=== PATIENT | female | born 2000 | race Caucasian/White ===

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

== ENCOUNTER 2021-01-04 16:38 | Emergency (ER) | payer OTHER, SELFPAY ==
[2021-01-04 16:48] VITALS: BP 120/76; PULSE 127; RESP 21; TEMP 37.1; O2SAT 97; BMI 31.1
--- NOTE | 2021-01-04 16:59 | HMH.EDUTC ---
[facility] [place] Disposition Clinical Impression: Nausea vomiting and diarrhea Disposition: Home, Self-Care Condition on Discharge: Good Instructions: Diarrhea, Nausea and Vomiting-Adult, Ondansetron Additional Instructions: Drink extra fluids with and between meals. If you have difficulty drinking, try very small amounts of water or suck on ice chips. ? Avoid fruit juices, as these do not replace minerals and can actually increase diarrhea. ? Children and adults can use sports drinks to replenish electrolytes. Younger children and infants should use products formulated for children, like oral rehydration solutions. ? Eat food in small amounts and let your stomach recover. ? Get lots of rest. You may feel tired or weak. ? No greasy or fried foods for the next 24-48 hours BRAT diet Bananas Rice Apples and [place] ? Make sure to drink plenty of liquids ? Return if needed ? Straight to ER if any life threatening symptoms ? Zofran as prescribed ? You was given an outpatient order for diarrhea panel, please collect specimen and bring back to outpatient lab then call back to the [facility] or follow up with family doctor for results ? Follow up with family doctor in the next 48-72 hours if no improvement or any worsening of symptoms You were tested for today for COVID19 your test result should be back in the next 24-48 hours, you may call to the [facility] to see if your test results are back in the next 48 hours [phone] [facility] hours are 9am-9pm You was given a handout with instructions for Self Quarantine and Self isolation for while you wait on test results and what to do if they are positive If you are positive the Health Dept will be contacting you also Prescriptions: Ondansetron [Zofran 4mg ODT] 4 mg PO Q6HP PRN #20 tab PRN Reason: Nausea Transmission Status: Received by [id number] Referrals: Provider,Referral, [Primary Care Provider] - As needed Time of Disposition: 18:38 Medical Decision Making - Jaswant Inquiry Pt receiving controlled substance: No Jaswant was queried for this patient: No Vital Signs: 01/04/21 16:48 01/04/21 18:45 Temperature 98.8 F 98.5 F Temperature Source Oral Pulse Rate 107 H Pulse Rate [Right] 127 H Respiratory Rate 21 18 Blood Pressure 111/74 Blood Pressure [Right Arm] 120/76 Blood Pressure Mean [Right Arm] 90 02 Sat by Pulse Oximetry 97 - Lab Data Lab Results 01/04/21 17:03: Chlamy pneumoniae PCR Not detected, Adenovirus (PCR) Not detected, B. pertussis DNA (PCR) Not detected, Coronavirus OC43 (PCR) Not detected, Coronavirus HKU1 (PCR) Not detected, Coronavirus 229E (PCR) Not detected, SARS-CoV-2 (PCR) Not detected, Coronavirus NL63 (PCR) Not detected, Human Metapneumovir PCR Not detected, Influenza A (H1) PCR Not detected, Influ A (H1N1/09) PCR Not detected, Influenza A (H3) PCR Not detected, Influenza Type A (PCR) Not detected, Influenza Type B (PCR) Not detected, M. pneumoniae (PCR) Not detected, Parainfluenza 1 (PCR) Not detected, Parainfluenza 2 (PCR) Not detected, Parainfluenza 3 (PCR) Not detected, Parainfluenza 4 (PCR) Not detected, RSV (PCR) Not detected, Entero/Rhino (PCR) Not detected Orders (Tests/Meds): ED MEDICATIONS Discontinued Medications Generic Name Dose Route Start Last Admin Trade Name Freq PRN Reason Stop Dose Admin Lactated Ringer's 1,000 mls @ 999 mls/hr 01/04/21 17:45 01/04/21 17:43 Lactated Ringer's 1000 Ml Bag IV 01/04/21 18:45 999 mls/hr .Q1H1M FREDERIC Administration Ondansetron HCl 4 mg 01/04/21 17:05 01/04/21 17:43 Ondansetron 4mg/2ml Vial IV 01/04/21 17:06 4 mg ONCE ONE Administration - Physician Consults Physician Consulted: Dr Morales Time: 17:06 Reason -: Obstetrical Eval/Care Comment/Response: Spoke with Dr Morales he advised to obtain full URP with COVID, Give 1 liter of Lactate Ringers, 4mg of Zofran IV Obtain heart tones and document and if feeling better after fluids may dc home with prescription of Zofran 4mg OD
[2021-01-04 17:09] LABS: Adenovirus,PCR Not Detected (NotDetected); Bordetella Pertussis Not Detected (NotDetected); Chlamydophila Pneumoniae, PCR Not Detected (NotDetected); Coronavirus 19, PCR Not Detected (NotDetected); Coronavirus 229E Not Detected (NotDetected); Coronavirus NL63 Not Detected (NotDetected); Coronavirus OC43 Not Detected (NotDetected); Coronovirus HKU1,PCR Not Detected (NotDetected); Human Metapneumovirus Not Detected (NotDetected); Influenza A, PCR Not Detected (NotDetected); Influenza AH1, 2009 Not Detected (NotDetected); Influenza AH1, PCR Not Detected (NotDetected); Influenza AH3,PCR Not Detected (NotDetected); Influenza B, PCR Not Detected (NotDetected); Mycoplasma Pneumoniae, PCR Not Detected (NotDetected); Parainfluenza 1, PCR Not Detected (NotDetected); Parainfluenza 2, PCR Not Detected (NotDetected); Parainfluenza 3, PCR Not Detected (NotDetected); Parainfluenza 4, PCR Not Detected (NotDetected); Respiratory Syncytial Virus Not Detected (NotDetected); Rhinovirus/Enterovirus Not Detected (NotDetected)
--- NOTE | 2021-01-04 18:37 | PC.NURSE ---
heart tones 143 slightly to the right of umbilicus.
[2021-01-04 18:45] VITALS: BP 111/74; PULSE 107; RESP 18; TEMP 36.9
== END 2021-01-04 18:45 | disposition home or self-care (01) ==
PROVIDERS: Emergency Provider Nurse Practitioner
DX: O21.2 Late vomiting of pregnancy (principal); Z3A.22 22 weeks gestation of pregnancy
CPT/HCPCS: 87581; 87633; 87798; 96365; 96375; 99202; G0463; J2405

== ENCOUNTER 2021-02-15 08:46 | Outpatient (CLI) | payer OTHER, SELFPAY ==
[2021-02-15 09:05] LABS: Basophils % 0.4 % (0.1-2.0); Eosinophils # 0.1 K/mm3 (0.0-0.4); Eosinophils % 0.6 % (0.1-12.0); Hematocrit 29.9 % (37.0-47.0); Hemoglobin 9.7 g/dL (12.2-16.2); Lymphocytes # 1.7 K/mm3 (0.7-4.5); Lymphocytes % 20.3 % (10-50); Mean Corpuscular HGB Conc 32.5 g/dL (31.8-35.4); Mean Corpuscular Hemoglobin 27.4 pg (27.0-31.2); Mean Corpuscular Volume 84.4 fl (81-99); Mean Platelet Volume 9.5 fl (7.4-10.4); Monocytes # 0.5 K/mm3 (0.1-1.0); Monocytes % 5.7 % (1.7-9.3); Neutrophils # 6.2 K/mm3 (1.8-7.8); Platelet Count 412 K/mm3 (142-424); Red Blood Count 3.54 M/mm3 (4.20-5.40); Red Cell Distribution Width 14.1 % (11.5-17.5); White Blood Count 8.5 K/mm3 (4.5-13.0)
[2021-02-15 09:26] LABS: Glucose,Fasting 99 mg/dl (74-100)
[2021-02-15 11:02] LABS: Glucose 1 Hour 114 mg/dL (74-100)
[2021-02-15 11:45] VITALS: BP 132/75; PULSE 84; RESP 18; TEMP 36.6; O2SAT 98
== END 2021-02-15 12:01 | disposition home or self-care (01) ==
PROVIDERS: Visit Provider Obstetrics & Gynecology
DX: Z34.90 Encounter for supervision of normal pregnancy, unspecified, unspecified trimester (principal)
CPT/HCPCS: 36415; 82951; 85025; 96372; J2790

== ENCOUNTER → 2021-04-05 10:29 | Outpatient (CLI) | payer OTHER, SELFPAY ==
--- NOTE | 2021-04-05 10:29 | US_ITS ---
PROCEDURE: US OB FOLLOW UP CLINICAL INDICATION: growth and RADHA FINDINGS: The following parameters are obtained: There is a single live fetus present which is in cephalic presentation. The placenta is posterior and grade 2. No previa or abruption demonstrated. The cervix is not demonstrated. Average ultrasound age is Average 36weeks 3days Estimated due date by ultrasound is 04/30/2021. Estimated weight is 2,934g. This is 87th percentile. BPD: 36 weeks 5 days OFD: 36 weeks 5 days HC: 36weeks AC: 36weeks 5days FL: 36weeks 1day heart rate: 142bpm bpm. HC/AC: 0.98 Cephalic index: 0.81 FL/BPD: 0.78 FL/AC: 0.22 Amniotic fluid index: 13.81cm The femur length is 36weeks 1day IMPRESSION: Live IUP with an average ultrasound age of 36 weeks 3 days and an estimated weight of 2934 g which is a 7th percentile very near large for gestational age. RADHA normal at 14 cm. Please see above for detail. Dictated by: Cosmo England MD 04/10/2021 08:02 Cosmo England MD in [place] 04/10/2021 08:02
== END ==
PROVIDERS: PCP Obstetrics & Gynecology; Visit Provider Obstetrics & Gynecology
DX: O36.5990 Maternal care for other known or suspected poor fetal growth, unspecified trimester, not applicable or unspecified (principal)
CPT/HCPCS: 76816

== ENCOUNTER → 2021-04-10 16:29 | Outpatient (CLI) | payer OTHER, SELFPAY | PROVIDERS: Visit Provider Obstetrics & Gynecology | DX: Z34.90 Encounter for supervision of normal pregnancy, unspecified, unspecified trimester (principal) | CPT/HCPCS: 86403 ==

== ENCOUNTER 2021-05-01 11:04 | Outpatient (CLI) | payer OTHER, SELFPAY ==
[2021-05-01 11:36] VITALS: BMI 34.5
[2021-05-01 11:38] VITALS: RESP 18; O2SAT 100; BMI 34.5
[2021-05-01 12:01] LABS: Microscopic, Urine URINE MICROSCOPIC (MICROSCOPIC)
[2021-05-01 12:07] LABS: Appearance,Urine CLEAR (Clear); Blood, Urine Negative (Negative); Color,Urine ORANGE (Yellow); Glucose,Urine (UA) Negative (Negative); Ketones,Urine 1+ (Negative); Leukocyte Esterase,Urine Negative (Negative); Nitrate,Urine Negative (Negative); PH,Urine 6.5 (5.0-8.5); Protein,Urine 1+ (Negative); Specific Gravity, Urine 1.025 (1.005-1.030); Urobilinogen,Urine 0.2 EU/dl (0.2)
[2021-05-01 12:18] LABS: Bilirubin,Urine 1+ (Negative)
[2021-05-01 12:44] LABS: Bacteria,Urine 1+ /lpf
[2021-05-01 13:27] LABS: Amphetamine/Metha Screen,Urine Negative ng/ml (<1000)
[2021-05-01 13:28] LABS: Barbiturates Screen,Urine Negative ng/ml (<200)
[2021-05-01 13:29] LABS: Benzodiazepines Screen,Urine Negative ng/ml (<200); Cannabinoid Screen,Urine Negative ng/ml (<50)
[2021-05-01 13:30] LABS: Cocaine Screen,Urine Negative ng/ml (<300)
[2021-05-01 13:31] LABS: Methadone Screen,Urine Negative ng/ml (<300); Opiate Screen,Urine Negative ng/ml (<300)
[2021-05-01 13:32] LABS: Phencyclidine Screen,Urine Negative ng/ml (<25)
== END 2021-05-01 14:50 | disposition home or self-care (01) ==
LOC: OBOUT 11:06 → OB 11:07
PROVIDERS: Obstetrics & Gynecology; Visit Provider Nurse Practitioner Obstetrics & Gynecology
DX: Z34.90 Encounter for supervision of normal pregnancy, unspecified, unspecified trimester (principal)
CPT/HCPCS: 59025; 80305; 81001; G0463

== ENCOUNTER 2021-05-02 04:56 | Inpatient (IN) | payer OTHER, SELFPAY ==
[2021-05-02 02:31] VITALS: BMI 34.5
[2021-05-02 02:58] VITALS: BP 130/94; PULSE 113; RESP 18; TEMP 36.8; O2SAT 99; BMI 34.5
[2021-05-02 03:16] LABS: Barbiturates Screen,Urine Negative ng/ml (<200); Benzodiazepines Screen,Urine Negative ng/ml (<200)
[2021-05-02 03:17] LABS: Amphetamine/Metha Screen,Urine Negative ng/ml (<1000)
[2021-05-02 03:18] LABS: Cannabinoid Screen,Urine Negative ng/ml (<50); Cocaine Screen,Urine Negative ng/ml (<300)
[2021-05-02 03:19] LABS: Methadone Screen,Urine Negative ng/ml (<300)
[2021-05-02 03:20] LABS: Opiate Screen,Urine Negative ng/ml (<300); Phencyclidine Screen,Urine Negative ng/ml (<25)
[2021-05-02 04:22] LABS: Coronavirus 19, PCR Not Detected (NotDetected); Influenza A, PCR Not Detected (NotDetected); Influenza B, PCR Not Detected (NotDetected)
[2021-05-02 04:25] LABS: Basophils % 0.4 % (0.1-2.0); Eosinophils % 0.3 % (0.1-12.0); Hematocrit 36.4 % (37.0-47.0); Hemoglobin 12.5 g/dL (12.2-16.2); Lymphocytes # 1.6 K/mm3 (0.7-4.5); Lymphocytes % 14.3 % (10-50); Mean Corpuscular HGB Conc 34.3 g/dL (31.8-35.4); Mean Corpuscular Hemoglobin 28.6 pg (27.0-31.2); Mean Corpuscular Volume 83.4 fl (81-99); Mean Platelet Volume 10.4 fl (7.4-10.4); Monocytes # 0.7 K/mm3 (0.1-1.0); Monocytes % 6.1 % (1.7-9.3); Neutrophils # 8.8 K/mm3 (1.8-7.8); Neutrophils % 79.1 % (37.0-80.0); Platelet Count 191 K/mm3 (142-424); Red Blood Count 4.36 M/mm3 (4.20-5.40); Red Cell Distribution Width 17.2 % (11.5-17.5); White Blood Count 11.1 K/mm3 (4.5-13.0)
[2021-05-02 05:08] VITALS: BP 144/88; PULSE 108; RESP 18; TEMP 37.2; O2SAT 99
--- NOTE | 2021-05-02 07:27 | P.PN_ITS ---
[facility] Anesthesia Checklist - Patient Identification Patient Identification: Arm Band - Structural Data Admitted From: Home Planned Operative Procedure/s: Labor epidural Consent for Planned Operative Procedure(s) Verified: Yes - NPO Status Verified Time NPO: 00:00 - Airway Assessment C-Spine Mobility Assessed: Yes TMJ Mobility Assessed: Yes Dentition: Good Dentition - Neurological Assessment Level of Consciousness: Awake Hx Seizures: No Numbness or tingling in extremities: No - Anesthesia Plan Anesthesia Risk discussed: Yes Anesthesia Plan: Verified ASA Class: II Anesthesia Type: Epidural [facility] History I have reviewed the patient's past medical history: Yes *Have you ever received a pneumonia vaccine?: No *Have you received a flu vaccine this season?: No Anesthesia experience/problems:: None Other Surgeries: Yes: No Previous Surgery. No: Amputation: No Fractures: No - *Social History Smoking Status: Never smoker Alcohol Intake: never Substance Use Type: denies use *Occupational Status:: student *Travel in the last 8 weeks: None Family Hx:: Non-contributory, Cancer, Diabetes, Hypertension, Hyperlipidemia Para: 0
--- NOTE | 2021-05-02 08:38 | HMH.HP ---
*Admission Date: 05/02/21 *Chief complaint: contractions *History of present illness: 21 yo @ 38 5/7 weeks presented with regular contractions and documented cervical change from 05/01/21. She was admitted with a diagnosis of active labor. She denied vaginal bleeding or leakage of fluid, and reported normal movement. Rh negative maternal status with genetic testing indicating Rh positive fetus; she received rhogam prophylaxis on 02/15/21 otherwise uncomplicated FOB has history of club foot; ultrasound indeterminate GBS negative H History I have reviewed the patient's past medical history: Yes Medical History: Denies:: Seizures *Have you ever received a pneumonia vaccine?: No *Have you received a flu vaccine this season?: No Anesthesia experience/problems:: None Other Surgeries: Yes: No Previous Surgery. No: Amputation: No Fractures: No - *Social History Smoking Status: Never smoker Alcohol Intake: never Substance Use Type: denies use *Occupational Status:: student *Travel in the last 8 weeks: None Family Hx:: Non-contributory, Cancer, Diabetes, Hypertension, Hyperlipidemia Para: 0 Review of Systems - Review of Systems Review of systems:: pertinent systems reviewed and negative unless documented below - *Genitourinary Reports other (contractions) Meds Home Medications Medication Instructions Recorded Confirmed Type No122/Iron/Folic Acid 1 each PO DAILY 10/02/20 05/02/21 History [ Multi Tablet] Ferrous Sulfate [Slow Fe] 142 mg PO DAILY 02/15/21 05/02/21 History Allergies Allergy/AdvReac Type Severity Reaction Status Date / Time No Known Allergies Allergy Verified 04/24/21 11:30 Exam Vital signs and Labs for Last 24 Hours: Temp Pulse Resp BP Pulse Ox 99.0 F 108 H 18 144/88 H 99 05/02/21 05:08 05/02/21 05:08 05/02/21 05:08 05/02/21 05:08 05/02/21 05:08 Laboratory Results - last 24 hr 05/02/21 02:30: Urine Opiates Screen Negative, Urine Methadone Screen Negative, Ur Barbituates Screen Negative, Ur Phencyclidine Scrn Negative, Ur Amphetamines Screen Negative, U Benzodiazepines Scrn Negative, Urine Cocaine Screen Negative, U Marijuana (THC) Screen Negative 05/02/21 04:15: SARS-CoV-2 (PCR) Not detected, Influenza A Untype (PCR) Not detected, Influenza Type B (PCR) Not detected 05/02/21 04:15: WBC 11.1, RBC 4.36, Hgb 12.5, Hct 36.4 L, MCV 83.4, MCH 28.6, MCHC 34.3, RDW 17.2, Plt Count 191, MPV 10.4, Neut % (Auto) 79.1, Lymph % (Auto) 14.3, [place] % (Auto) 6.1, Eos % (Auto) 0.3, Baso % (Auto) 0.4, Neut # (Auto) 8.8 H, Lymph # (Auto) 1.6, [place] # (Auto) 0.7, Eos # (Auto) 0.0, Baso # (Auto) 0.0 05/02/21 04:15: Blood Type AB Negative, Antibody Screen Positive I & O for Last 24 hours: Intake & Output 04/29/21 04/30/21 05/01/21 05/02/21 11:59 11:59 11:59 11:59 Weight 189 lb - Constitutional no acute distress - *Routine HEENT Exam Head: Present: normocephalic Eye: Absent: conjunctival icterus ENT: Present: mucous membranes moist - *Routine Neck Exam Present: supple. Absent: lymphadenopathy - *Routine Respiratory Exam Present: CTA bilaterally - *Routine Cardiovascular Exam Present: RRR - *Routine Abdominal Exam Present: soft, normoactive bowel sounds. Absent: tenderness - *Routine Rectal Exam Rectal:: deferred - *Routine Genitalia Exam Genitalia:: normal female Comment:: cervix 4cm - *Routine Extremities Exam Absent: cyanosis, clubbing, edema - *Routine Skin Exam Present: warm. Absent: rash - *Routine Neurological Exam Present: alert, oriented X3 Assessment and Plan (1) 38 weeks gestation of Status: Acute Category: Medical Code(s): Z3A.38 - 38 weeks gestation of (2) Teen Status: Acute Category: Medical (3) Active labor at term Status: Acute Category: Medical (4) Rh negative status during Status: Acute Qualifiers:
--- NOTE | 2021-05-02 09:48 | HMH.LABNOT ---
Labor Note - Subjective: Date: 05/02/21 Time: 09:48 irregular contractions Comment:: irregular contractions recent pattern of repetitive late decelerations now resolved AROM with thick meconium noted IUPC and FSE placed without complication or difficulty cervix - Fetus: monitoring type:: Internal - Assessment: Patient Problems: All Active Problems Meconium in amniotic fluid (Acute) Active labor at term (Acute) 38 weeks gestation of (Acute) Nausea vomiting and diarrhea (Acute) Tooth abscess (Acute) Family history of clubfoot (Acute) Teen (Acute) (Acute) Vaginal bleeding affecting early (Acute) Rh negative status during (Acute) - Plan: Comment:: pitocin discontinued during heart rate decelerations pitocin will be resumed now that tracing has resolved patient advised of increased risk of c section with repetitive late decelerations and meconium stained amniotic fluid all questions answered
--- NOTE | 2021-05-02 12:24 | HMH.LABNOT ---
Labor Note - Subjective: Date: 05/02/21 Time: 12:24 Comment:: regular contractions q 2-3 minutes cervix 9/100/0 comfortable with epidural tracing has remained reassuring since time of AROM - Assessment: Labor progressing?: Yes Patient Problems: All Active Problems Meconium in amniotic fluid (Acute) Active labor at term (Acute) 38 weeks gestation of (Acute) Nausea vomiting and diarrhea (Acute) Tooth abscess (Acute) Family history of clubfoot (Acute) Teen (Acute) (Acute) Vaginal bleeding affecting early (Acute) Rh negative status during (Acute) - Plan: Continue to labor down?: Yes
--- NOTE | 2021-05-02 14:34 | P.PCN_ITS ---
- Delivery Note Delivery Date:: 05/02/21 Delivery Time:: 13:58 Anesthesia Type: Epidural Was labor medically induced?: No Infant delivered prior to 39 weeks?: Yes Justification for early elective delivery:: Active Labor Infant Gender: Female at 1 minute: 8 at 5 minutes: 8 Delivery Procedure:: Spontaneous vaginal delivery of liveborn female over intact perineum. Delivery uncomplicated No nuchal cord; no shoulder dystocia with delivery taken to warmer immediately after delivery, with standard nursing assessment performed Parquetry Floor Layer present for delivery due to meconium stained amniotic fluid Infant Apgars: 8 & 8 Placenta spontaneously expressed and examined; noted to be complete/intact. Vulva, vagina, and cervix inspected; first degree perineal laceration repaired with 2-0 vicryl EBL: 300 cc All sponge/needle/instrument counts correct at conclusion of procedure Laceration:: vaginal Placental Delivery Description: Spontaneous
[2021-05-02 16:08] LABS: POC Glucose,Bedside 91 (70-110)
[2021-05-02 20:00] VITALS: BP 141/86; PULSE 105; RESP 18; TEMP 37.1; O2SAT 99
[2021-05-03 04:53] VITALS: BP 125/58; PULSE 108; RESP 17; TEMP 36.8; O2SAT 98
[2021-05-03 07:04] LABS: Hematocrit 27.9 % (37.0-47.0); Hemoglobin 9.6 g/dL (12.2-16.2)
[2021-05-03 08:00] VITALS: BP 131/86; PULSE 112; RESP 20; TEMP 36.4; O2SAT 97
--- NOTE | 2021-05-03 10:11 | HMH.OBDCSM ---
General - General Admission date:: 05/02/21 Discharge date: 05/03/21 HPI - History of Present Illness History of present illness: She is a 21-year-old 2 para 0 aborta 1 who came in in active labor. She was found to be 3 to 4 cm dilated and was kami regularly. Hospital Course Hospital Course: She arrived in active labor and progressed to full dilation. She delivered a liveborn female child at 1:58 PM in the afternoon of May 02, 2021. The baby weighed 8 pounds 7 ounces and was 20 inches long. She had Apgars of 8 at 1 minute and 8 at 5 minutes. The baby was transferred because it had meconium. She is discharged home today to follow-up with Dr. Grace in about 6 weeks time. She will continue with her vitamins and iron. She is taking [id number] analgesics. She will continue to pump her breast. She has AB- blood, she has received RhoGam. Her cobol programmer is Dr. Zhong. She is group B streptococcus negative. She was given the above instructions with respect to limiting her activity, driving and sexual activity. Her condition on discharge is stable and improved. Objective Vital signs: Temp Pulse Resp BP Pulse Ox 97.5 F L 112 H 20 131/86 97 05/03/21 08:00 05/03/21 08:00 05/03/21 08:00 05/03/21 08:00 05/03/21 08:00 no acute distress - *Routine HEENT Exam Head: Present: normocephalic Eye: Present: EOMI, PERRL ENT: Present: mucous membranes moist Results Labs on day of discharge: Labs from last 24 hours 05/03/21 05/03/21 05/02/21 06:32 06:32 16:01 Hgb 9.6 L Hct 27.9 L POC Glucose 91 Antibody Identification Screen Pending Baby's Rh Status Pending Rhogam Infusion Pending 05/02/21 04:15 Hgb Hct POC Glucose Antibody Identification Anti-D Screen Baby's Rh Status Rhogam Infusion DS: Diagnosis - Discharge Diagnosis (1) 38 weeks gestation of Status: Acute (2) Teen Status: Acute (3) Active labor at term Status: Acute (4) Rh negative status during Status: Acute (5) Family history of clubfoot Status: Acute Problem details: FOB Discharge Plan - Patient Discharge Instructions ACTIVITY: No heavy lifting DIET: continue same diet Additional Instructions: NOTHING IN THE VAGINA FOR 6 WEEKS NO TUB BATHS DRINK PLENTY OF FLUIDS Patient Instructions: Depression, Hemorrhage, DI for Labor and Delivery, Vaginal , DI for Pre-eclampsia, [facility] Post Discharge Instructions, Preventing the Spread of Coronavirus Discharge Instructions - Follow up Plan Follow up with: Yari Grace MD [Staff Physician] - Disposition: Home, Self-Care Condition at discharge:: Stable Home Medications: Home Medications Medication Instructions Recorded Confirmed Type No122/Iron/Folic Acid 1 each PO DAILY 10/02/20 05/02/21 History [ Multi Tablet] Ferrous Sulfate [Slow Fe] 142 mg PO DAILY 02/15/21 05/02/21 History Prescriptions/Medication Reconciliation: Continued No122/Iron/Folic Acid [ Multi Tablet] 1 each PO DAILY Ferrous Sulfate [Slow Fe] 142 mg PO DAILY - Problem Reconciliation Problems Reviewed?: Yes
== END 2021-05-03 12:30 | disposition home or self-care (01) | DRG 807 ==
LOC: OBOUT 04:57 → OB 04:57
PROVIDERS: Admitting Provider Nurse Practitioner Obstetrics & Gynecology; Visit Provider Obstetrics & Gynecology
DX: O70.0 First degree perineal laceration during delivery (principal); Z37.0 Single live birth; Z3A.38 38 weeks gestation of pregnancy; Z20.822 Contact with and (suspected) exposure to COVID-19
CPT/HCPCS: 59409; 36415; 59025; 80305; 81001; 82962; 85014; 85018; 85025; 85461; 86850; 86870; 94761; C1758; C9803; G0283; G0463; J0595; J2790; U0003; U0005

== ENCOUNTER 2021-05-28 16:39 | Emergency (ER) | payer OTHER, SELFPAY ==
[2021-05-28 17:30] VITALS: BP 155/78; PULSE 87; RESP 18; TEMP 36.9; O2SAT 98; BMI 26.5
[2021-05-28 17:38] LABS: UTC Strep Screen (Rapid) Positive (Negative)
[2021-05-28 18:04] VITALS: BP 155/88; PULSE 87; RESP 18; TEMP 36.9
--- NOTE | 2021-05-28 18:19 | HMH.EDUTC ---
[facility] [place] Disposition Clinical Impression: Strep throat Disposition: Home, Self-Care Condition on Discharge: Good Instructions: Strep Throat, DI for Strep Throat Additional Instructions: Drink plenty of fluids. Take tylenol or ibuprofen for pain or fever. Take the medications as directed. Follow up with your regular doctor. GO TO THE ER FOR ANY WORSENING SYMPTOMS Throw your tooth brush away and get a new one. Referrals: Yari Grace MD [Primary Care Provider] - Time of Disposition: 18:56 Medical Decision Making - Medical Records Medical records reviewed: No: I reviewed the patient's medical records. - Jaswant Inquiry Pt receiving controlled substance: No Vital Signs: 05/28/21 17:30 05/28/21 18:04 Temperature 98.5 F 98.5 F Temperature Source Oral Pulse Rate 87 Pulse Rate [Left] 87 Respiratory Rate 18 18 Blood Pressure 155/88 H Blood Pressure [Right Arm] 155/78 H Blood Pressure Mean [Right Arm] 103 02 Sat by Pulse Oximetry 98 - Lab Data Lab results reviewed: Yes: I reviewed the patient's lab results. Lab Results 05/28/21 17:31: Strep Scn Rapid [facility] Positive A Orders (Tests/Meds): ED MEDICATIONS Discontinued Medications Generic Name Dose Route Start Last Admin Trade Name Freq PRN Reason Stop Dose Admin Penicillin G Benzathine 1,200,000 unit 05/28/21 18:28 05/28/21 18:46 Penicillin G Benzathine 1,200,000 Units/2ml Syringe IM 05/28/21 18:29 1,200,000 unit ONCE ONE Administration [facility] [place] HPI - General Stated complaint: sore throat and cough Time Seen by Provider: 05/28/21 18:19 Mode of Arrival: Ambulatory Source of Information: Patient Limitations: No Limitations Description of Symptoms (Recalled from Triage Doc. by RN): pt c/o a sore throat and bilateral ear aches. HEENT Symptoms (Recalled from RN notes): Yes (sore throat and bilateral ear aches) Resp Symptoms (Recalled from RN notes): No Skin Symptoms (Recalled from RN notes): No MS Symptoms (Recalled from RN notes): No Functional Status (Recalled from RN notes): wnl - History of Present Illness Provider Complaint: She c/o sore throat and a cough for the past 2 days. She has ran a fever up to 101.0. She denies any known contact with covid-19. She is breast feeding a 3 week old baby. - Related Data Home Medications Medication Instructions Recorded Confirmed No122/Iron/Folic Acid 1 each PO DAILY 10/02/20 05/02/21 [ Multi Tablet] Ferrous Sulfate [Slow Fe] 142 mg PO DAILY 02/15/21 05/02/21 Allergies Allergy/AdvReac Type Severity Reaction Status Date / Time No Known Allergies Allergy Verified 04/24/21 11:30 - Worker's Comp Is this a Worker's Comp case?: No [facility] History - Hepatitis A Screen Drug use history?: No High risk sexual behaviors?: No History of sexually transmitted infection?: No Currently employed?: No Childcare worker?: No Do you have indoor plumbing?: Yes Do you have electricity?: Yes Attestation statement:: This patient has been screened for Hepatitis A risk factors. I have reviewed the patient's past medical history: Yes Medical History: Denies:: Seizures Other Surgeries: Yes: No Previous Surgery. No: Amputation: No Fractures: No Comment: wisdom teeth - Social History Smoking Status: Never smoker Alcohol Intake: never Substance Use Type: denies use Occupational Status: student Family Hx:: Non-contributory, Cancer, Diabetes, Hypertension, Hyperlipidemia ROS Obtained: Yes All systems reviewed & no additional complaints - Constitutional Constitutional: Reports as per HPI - Eyes Eyes: Denies eye discharge - ENT Ears, Nose, Mouth, and Throat: Reports as per HPI - Cardiovascular Cardiovascular: Denies chest pain - Respiratory Respiratory: Denies chest congestion, Reports cough, Denies dyspnea, Denies stridor, Denies wheezing Physical Exam - General General appearance: alert, in no apparent distr
== END 2021-05-28 19:07 | disposition home or self-care (01) ==
PROVIDERS: Emergency Provider Nurse Practitioner Family; PCP Obstetrics & Gynecology
DX: J02.0 Streptococcal pharyngitis (principal)
CPT/HCPCS: 87880; 99202; G0463; J0561

== ENCOUNTER 2022-02-02 14:10 | Emergency (ER) | payer OTHER, SELFPAY ==
--- NOTE | 2022-02-02 15:59 | EXP.UTC ---
Discharge Plan Disposition Patient Disposition: Home, Self-Care Condition: Good Prescriptions Prescriptions: New amoxicillin [amoxicillin] 875 mg tablet 875 mg PO Q12H Qty: 20 0RF yotkyduipjdvosz-sumoyswrr-SV [Bromfed DM] 2-30-10 mg/5 mL Syrup 5 ml PO Q6H PRN (Reason: Cough) Qty: 240 0RF No Action norethindrone (contraceptive) [Ortho Micronor] 0.35 mg tablet 0.35 mg PO DAILY Qty: 28 11RF norethindrone-e.estradiol-iron [June FE 06/29 (28)] 1 mg-20 mcg (21)/75 mg (7) tablet 1 tab PO DAILY Qty: 84 11RF ferrous sulfate 142 MG tablet extended release 142 mg PO DAILY [id number] acid 1 EACH tablet 1 each PO DAILY Referrals Referrals: Provider,Referral, MD [Primary Care Provider] - Enter time for follow up Activity Restrictions/Add. Instructions Additional Instructions/Restrictions: Drink plenty of fluids. Take tylenol or ibuprofen for pain or fever. Take the medications as directed. Follow up with your regular doctor. GO TO THE ER FOR ANY WORSENING SYMPTOMS Throw your tooth brush away and get a new one. Clinical Impressions Clinical Impression: Strep throat Instructions Patient Instructions: Strep Throat, DI for Strep Throat Discharge ED Provider: Adebayo Doyle [facility] [place] HPI General Stated complaint: Sore throat Mode of Arrival: Ambulatory Source of Information: Patient and Parent(s) Limitations: No Limitations Time Seen by Provider: 02/02/22 15:59 Description of Symptoms (Recalled from Triage Doc. by RN): patient comes in with complaints of sore throat and runny nose. at home covid test was negative. symptoms began saturday. HEENT Symptoms (Recalled from RN notes): Yes Resp Symptoms (Recalled from RN notes): Yes Skin Symptoms (Recalled from RN notes): No MS Symptoms (Recalled from RN notes): No Functional Status (Recalled from RN notes): n/a History of Present Illness Provider Complaint: She c/o sore throat for the past 2 days. Her boyfriend has strep throat right now. Related Data Home Medications Medication Instructions Recorded Confirmed vit 122-ferrous fumarate 1 each PO DAILY Supplement 10/02/20 06/19/21 27 mg iron-folic acid 800 mcg tablet ferrous sulfate 142 mg (45 mg 142 mg PO DAILY Supplement 02/15/21 06/19/21 iron) tablet,extended release Previous Rx's Medication Instructions Recorded norethindrone (contraceptive) 0.35 0.35 mg PO DAILY #28 tabs 06/19/21 mg tablet (Ortho Micronor) norethindrone 1 mg-ethinyl 1 tab PO DAILY #84 tabs 07/11/21 estradiol 20 mcg (21)-iron 75 mg (7) tablet (Junel FE 06/29 (28)) amoxicillin 875 mg tablet 875 mg PO Q12H #20 tabs 02/02/22 dfpbqouwowbgurr-tanvwaohauhfnqk-BF 5 ml PO Q6H PRN Cough #240 mL 02/02/22 2 mg-30 mg-10 mg/5 mL oral syrup (Bromfed DM) Allergies Allergy/AdvReac Type Severity Reaction Status Date / Time No Known Allergies Allergy Verified 02/02/22 16:11 Worker's Comp Is this a Worker's Comp case?: No PFSH PFSH Social History Smoking Status: Never smoker alcohol intake: never substance use type: denies use current occupational status: student ROS Obtained: Yes All systems reviewed & no additional complaints except as documented Constitutional Constitutional: Reports chills and Reports fever(s) Eyes Eyes: Denies eye discharge ENT Ears, Nose, Mouth, and Throat: Reports as per HPI Cardiovascular Cardiovascular: Denies chest pain Respiratory Respiratory: Denies chest congestion and Reports cough Gastrointestinal Gastrointestingal: Reports nausea; Denies abdominal pain, constipation, cramping, diarrhea or vomiting Musculoskeletal Musculoskeletal: Denies arthralgias Integumentary/Breasts Skin/Breast: Denies rash Neurologic Neurologic: Denies paresthesias Physical Exam General General appearance: alert and in no apparent distress Head Head exam: atraumatic and normocephali
[2022-02-02 16:05] LABS: UTC Strep Screen (Rapid) Positive (Negative)
[2022-02-02 16:06] VITALS: BP 127/75; PULSE 89; RESP 17; TEMP 36.9; O2SAT 100; BMI 31.1
[2022-02-02 16:35] VITALS: BP 127/75; PULSE 89; RESP 17; TEMP 36.9
== END 2022-02-02 16:42 | disposition home or self-care (01) ==
PROVIDERS: Emergency Provider Nurse Practitioner Family
DX: J02.0 Streptococcal pharyngitis (principal); B95.0 Streptococcus, group A, as the cause of diseases classified elsewhere; R09.89 Other specified symptoms and signs involving the circulatory and respiratory systems; Z79.890 Hormone replacement therapy; Z79.899 Other long term (current) drug therapy
CPT/HCPCS: 87880; 99213; G0463

== ENCOUNTER 2022-03-13 16:54 | Emergency (ER) | payer OTHER, SELFPAY ==
[2022-03-13 17:03] VITALS: BP 123/72; PULSE 107; RESP 16; TEMP 37.1; O2SAT 98; BMI 29.2
--- NOTE | 2022-03-13 17:13 | EXP.UTC ---
Discharge Plan Disposition Patient Disposition: Home, Self-Care Condition: Good Prescriptions Prescriptions: New amoxicillin [amoxicillin] 875 mg tablet 875 mg PO Q12H Qty: 20 0RF aprrsyersimlqwl-imkxadhlv-WS [Bromfed DM] 2-30-10 mg/5 mL Syrup 5 ml PO Q6H PRN (Reason: Cough) Qty: 240 0RF prednisone 10 mg tablet 10 mg PO BID 3 Days Qty: 6 0RF No Action norethindrone (contraceptive) [Ortho Micronor] 0.35 mg tablet 0.35 mg PO DAILY Qty: 28 11RF norethindrone-e.estradiol-iron [Junel FE 06/29 (28)] 1 mg-20 mcg (21)/75 mg (7) tablet 1 tab PO DAILY Qty: 84 11RF ferrous sulfate 142 MG tablet extended release 142 mg PO DAILY [id number] acid 1 EACH tablet 1 each PO DAILY amoxicillin [amoxicillin] 875 mg tablet 875 mg PO Q12H Qty: 20 0RF vvsiwreozruvirb-roiiksuuj-GG [Bromfed DM] 2-30-10 mg/5 mL Syrup 5 ml PO Q6H PRN (Reason: Cough) Qty: 240 0RF Referrals Follow up/Referrals: Provider,Referral, MD [Primary Care Provider] - See instructions Activity Restrictions/Add. Instructions Additional Instructions/Restrictions: Drink plenty of fluids. Take tylenol or ibuprofen for pain or fever. Take the medications as directed. Follow up with your regular doctor. GO TO THE ER FOR ANY WORSENING SYMPTOMS Clinical Impressions Clinical Impression: Strep throat Stand Alone Forms Stand Alone Forms: Work/School Release Instructions Patient Instructions: Strep Throat, DI for Strep Throat Discharge ED Provider: Александр Doyle [facility] [place] HPI General Stated complaint: sore throat Mode of Arrival: Ambulatory Source of Information: Patient Limitations: No Limitations Time Seen by Provider: 03/13/22 17:13 Description of Symptoms (Recalled from Triage Doc. by RN): pt comes in today with c/o sore throat. symptoms ongoing for 2 days HEENT Symptoms (Recalled from RN notes): Yes Resp Symptoms (Recalled from RN notes): No Skin Symptoms (Recalled from RN notes): No MS Symptoms (Recalled from RN notes): No Functional Status (Recalled from RN notes): n/a History of Present Illness Provider Complaint: She states that she has had a sore throat for the past 2 days. She has had chills but no documented fever. Related Data Home Medications Medication Instructions Recorded Confirmed vit 122-ferrous fumarate 1 each PO DAILY Supplement 10/02/20 06/19/21 27 mg iron-folic acid 800 mcg tablet ferrous sulfate 142 mg (45 mg 142 mg PO DAILY Supplement 02/15/21 06/19/21 iron) tablet,extended release Previous Rx's Medication Instructions Recorded norethindrone (contraceptive) 0.35 0.35 mg PO DAILY #28 tabs 06/19/21 mg tablet (Ortho Micronor) norethindrone 1 mg-ethinyl 1 tab PO DAILY #84 tabs 07/11/21 estradiol 20 mcg (21)-iron 75 mg (7) tablet (Junel FE 06/29 ()) amoxicillin 875 mg tablet 875 mg PO Q12H #20 tabs 02/02/22 gdzbhjqzntktkgf-lljeorlupmyuudx-EC 5 ml PO Q6H PRN Cough #240 mL 02/02/22 2 mg-30 mg-10 mg/5 mL oral syrup (Bromfed DM) amoxicillin 875 mg tablet 875 mg PO Q12H #20 tabs 03/13/22 fjgescokjaqzlmv-fsulojyyijxlgix-WE 5 ml PO Q6H PRN Cough #240 mL 03/13/22 2 mg-30 mg-10 mg/5 mL oral syrup (Bromfed DM) prednisone 10 mg tablet 10 mg PO BID 3 days #6 tabs 03/13/22 Allergies Allergy/AdvReac Type Severity Reaction Status Date / Time No Known Allergies Allergy Verified 03/13/22 17:06 Worker's Comp Is this a Worker's Comp case?: No PFSH PFSH Social History Smoking Status: Never smoker alcohol intake: never substance use type: denies use current occupational status: student Travel in the last 8 weeks: None ROS Obtained: Yes All systems reviewed & no additional complaints except as documented Constitutional Constitutional: Reports chills and Reports fever(s) Eyes Eyes: Denies eye discharge ENT Ears, Nose, Mouth, and Throat: Reports as per HPI [facility]
[2022-03-13 17:15] LABS: UTC Strep Screen (Rapid) Negative (Negative)
[2022-03-13 18:17] VITALS: BP 123/72; PULSE 107; RESP 16; TEMP 37.1
== END 2022-03-13 18:18 | disposition home or self-care (01) ==
PROVIDERS: Nurse Practitioner Family; Emergency Provider Psychiatry & Neurology Clinical Neurophysiology
DX: J02.9 Acute pharyngitis, unspecified (principal)
CPT/HCPCS: 87880; 99212; G0463

== ENCOUNTER 2022-07-26 19:13 | Emergency (ER) | payer OTHER, SELFPAY ==
--- NOTE | 2022-07-26 20:31 | EXP.UTC ---
Discharge Plan Disposition Patient Disposition: Home, Self-Care Condition: Good Prescriptions Prescriptions: New amoxicillin [amoxicillin] 500 mg tablet 500 mg PO TID 10 Days Qty: 30 0RF vinmtqkiswgkenp-ehxunaykx-ZB [Bromfed DM] 2-30-10 mg/5 mL Syrup 5 ml PO Q6H PRN (Reason: Cough) Qty: 240 0RF No Action norethindrone (contraceptive) [Ortho Micronor] 0.35 mg tablet 0.35 mg PO DAILY Qty: 28 11RF norethindrone-e.estradiol-iron [June06/29 (28)] 1 mg-20 mcg (21)/75 mg (7) tablet 1 tab PO DAILY Qty: 84 11RF ferrous sulfate 142 MG tablet extended release 142 mg PO DAILY [id number] acid 1 EACH tablet 1 each PO DAILY amoxicillin [amoxicillin] 875 mg tablet 875 mg PO Q12H Qty: 20 0RF dqyrwtrcloabfnv-qybsnthwn-RL [Bromfed DM] 2-30-10 mg/5 mL Syrup 5 ml PO Q6H PRN (Reason: Cough) Qty: 240 0RF amoxicillin [amoxicillin] 875 mg tablet 875 mg PO Q12H Qty: 20 0RF efqvogfhyqcwant-ucgxtilfa-PJ [Bromfed DM] 2-30-10 mg/5 mL Syrup 5 ml PO Q6H PRN (Reason: Cough) Qty: 240 0RF prednisone 10 mg tablet 10 mg PO BID 3 Days Qty: 6 0RF Referrals Follow up/Referrals: Provider,Referral, MD [Primary Care Provider] - See instructions Activity Restrictions/Add. Instructions Additional Instructions/Restrictions: Drink plenty of fluids. Take tylenol or ibuprofen for pain or fever. Take the medications as directed. Follow up with your regular doctor. GO TO THE ER FOR ANY WORSENING SYMPTOMS Throw your tooth brush away and get a new one. Clinical Impressions Clinical Impression: Pharyngitis Instructions Patient Instructions: Strep Throat, DI for Strep Throat Discharge ED Provider: Adebayo Doyle [facility] [place] HPI General Stated complaint: sore throat,[place] [facility] Time Seen by Provider: 07/26/22 20:31 History of Present Illness Provider Complaint: She states that for the past 2 days she has had a sore throat, sinus drainage and she has felt bad. Related Data Home Medications Medication Instructions Recorded Confirmed vit 122-ferrous fumarate 1 each PO DAILY Supplement 10/02/20 06/19/21 27 mg iron-folic acid 800 mcg tablet ferrous sulfate 142 mg (45 mg 142 mg PO DAILY Supplement 02/15/21 06/19/21 iron) tablet,extended release Previous Rx's Medication Instructions Recorded norethindrone (contraceptive) 0.35 0.35 mg PO DAILY #28 tabs 06/19/21 mg tablet (Ortho Micronor) norethindrone 1 mg-ethinyl 1 tab PO DAILY #84 tabs 07/11/21 estradiol 20 mcg (21)-iron 75 mg (7) tablet (Junel FE 06/29 (28)) amoxicillin 875 mg tablet 875 mg PO Q12H #20 tabs 02/02/22 bdoigfdherjtiob-tuggdgirujncbxr-IG 5 ml PO Q6H PRN Cough #240 mL 02/02/22 2 mg-30 mg-10 mg/5 mL oral syrup (Bromfed DM) amoxicillin 875 mg tablet 875 mg PO Q12H #20 tabs 03/13/22 pegvjcrvsjssuwz-ygqthfmdwqbzogc-ZL 5 ml PO Q6H PRN Cough #240 mL 03/13/22 2 mg-30 mg-10 mg/5 mL oral syrup (Bromfed DM) prednisone 10 mg tablet 10 mg PO BID 3 days #6 tabs 03/13/22 amoxicillin 500 mg tablet 500 mg PO TID 10 days #30 tabs 07/26/22 pypredmfsgcxwfd-ujavyogsgbsxlzb-BC 5 ml PO Q6H PRN Cough #240 mL 07/26/22 2 mg-30 mg-10 mg/5 mL oral syrup (Bromfed DM) Allergies Allergy/AdvReac Type Severity Reaction Status Date / Time No Known Allergies Allergy Verified 03/13/22 17:06 [facility] Disclaimer: The information contained in this section may have been updated after the patient was seen, as this information can be updated by other users. Social History Smoking Status: Never smoker alcohol intake: never substance use type: denies use current occupational status: student Travel in the last 8 weeks: None ROS Obtained: Yes All systems reviewed & no additional complaints except as documented Constitutional Constitutional: Reports chills and Reports fever(s) Eyes Eyes: Denies eye discharge ENT Ears, Nose, Mo
[2022-07-26 20:36] VITALS: BP 124/77; PULSE 104; RESP 18; TEMP 37.4; O2SAT 98; BMI 32.0
[2022-07-26 20:45] LABS: UTC Strep Screen (Rapid) Negative (Negative)
[2022-07-26 20:55] VITALS: BP 124/77; PULSE 84; RESP 18; TEMP 37.4; O2SAT 98
== END 2022-07-26 21:07 | disposition home or self-care (01) ==
PROVIDERS: Emergency Provider Nurse Practitioner Family
DX: J02.9 Acute pharyngitis, unspecified (principal)
CPT/HCPCS: 87880; 99212; G0463

== ENCOUNTER 2023-01-19 16:56 | Emergency (ER) | payer OTHER, SELFPAY ==
[2023-01-19 17:00] VITALS: BP 119/71; PULSE 84; RESP 19; TEMP 36.4; O2SAT 98; BMI 31.1
[2023-01-19 17:14] VITALS: BP 119/71; PULSE 84; RESP 19; TEMP 36.4; O2SAT 98
[2023-01-19 17:14] LABS: UTC Strep Screen (Rapid) Negative (Negative)
--- NOTE | 2023-01-19 17:17 | EXP.UTC ---
Discharge Plan Disposition Patient Disposition: Home, Self-Care Condition: Good Prescriptions Prescriptions: New amoxicillin [amoxicillin] 500 mg tablet 500 mg PO TID 10 Days Qty: 30 0RF igecqhgxfuynsqw-divvxddck-SE [Bromfed DM] 2-30-10 mg/5 mL Syrup 5 ml PO Q6H PRN (Reason: Cough) Qty: 240 0RF Referrals Follow up/Referrals: Provider,Referral, MD [Primary Care Provider] - See instructions Activity Restrictions/Add. Instructions Additional Instructions/Restrictions: Drink plenty of fluids. Take tylenol or ibuprofen for pain or fever. Take the medications as directed. Follow up with your regular doctor. GO TO THE ER FOR ANY WORSENING SYMPTOMS Clinical Impressions Clinical Impression: Pharyngitis Instructions Patient Instructions: Sore Throat, DI for Pharyngitis/Tonsillopharyngitis -- Adult Discharge ED Provider: Adebayo Doyle [facility] [place] HPI General Stated complaint: sore throat Mode of Arrival: Ambulatory Source of Information: Patient Limitations: No Limitations Time Seen by Provider: 01/19/23 17:17 Description of Symptoms (Recalled from Triage Doc. by RN): PATIENT C/O SORE THROAT AND BILATERAL EAR PAIN X 2 DAYS HEENT Symptoms (Recalled from RN notes): Yes Resp Symptoms (Recalled from RN notes): No Skin Symptoms (Recalled from RN notes): No MS Symptoms (Recalled from RN notes): No Functional Status (Recalled from RN notes): WNL History of Present Illness Provider Complaint: She c/o sore throat for the past 3 days. She denies documented fever but she has had chills and body aches. Related Data Previous Rx's Medication Instructions Recorded amoxicillin 500 mg tablet 500 mg PO TID 10 days #30 tabs 01/19/23 ewodhgzjqwhpaae-fvpfyujwaoyoapv-CB 5 ml PO Q6H PRN Cough #240 mL 01/19/23 2 mg-30 mg-10 mg/5 mL oral syrup (Bromfed DM) Allergies Allergy/AdvReac Type Severity Reaction Status Date / Time No Known Allergies Allergy Verified 03/13/22 17:06 Worker's Comp Is this a Worker's Comp case?: No [facility] Disclaimer: The information contained in this section may have been updated after the patient was seen, as this information can be updated by other users. Social History Smoking Status: Never smoker alcohol intake: never substance use type: denies use current occupational status: student Travel in the last 8 weeks: None ROS Obtained: Yes All systems reviewed & no additional complaints except as documented Constitutional Constitutional: Reports chills and Denies fever(s) Eyes Eyes: Denies eye discharge ENT Ears, Nose, Mouth, and Throat: Reports as per HPI Cardiovascular Cardiovascular: Denies chest pain Respiratory Respiratory: Denies chest congestion and Reports cough Gastrointestinal Gastrointestingal: Reports nausea; Denies abdominal pain, constipation, cramping, diarrhea or vomiting Musculoskeletal Musculoskeletal: Denies arthralgias Integumentary/Breasts Skin/Breast: Denies rash Neurologic Neurologic: Denies paresthesias Physical Exam General General appearance: alert and in no apparent distress Head Head exam: atraumatic, normocephalic and normal inspection Eye Eye exam: Present normal appearance, PERRL and EOMI ENT ENT exam: Present mucous membranes moist and normal external ear exam Expanded ENT Exam TM/Canal exam: Bilateral TM: erythema and bulging Nose exam: Absent sinus tenderness Mouth exam: Present normal external inspection; Absent drooling Teeth exam: Present normal inspection Throat exam: Present tonsillar erythema, tonsillomegaly and tonsillar exudate Neck Neck exam: Present normal inspection, full ROM and trachea midline; Absent tenderness, meningismus or lymphadenopathy Chest Chest inspection: Present normal inspection and symmetric chest wall rise; Absent tenderness Respiratory Respiratory exam: Present normal lung sounds bilaterally; Absent respiratory distress, wheezes or stridor C
== END 2023-01-19 17:37 | disposition home or self-care (01) ==
PROVIDERS: Emergency Provider Nurse Practitioner Family
DX: J02.9 Acute pharyngitis, unspecified (principal)
CPT/HCPCS: 87880; 99212; 99214; G0463

== ENCOUNTER 2023-03-13 17:37 | Emergency (ER) | payer OTHER, SELFPAY ==
[2023-03-13 17:38] VITALS: BP 136/82; PULSE 102; RESP 16; TEMP 37.2; O2SAT 99; BMI 31.1
[2023-03-13 17:45] VITALS: BMI 31.1
--- NOTE | 2023-03-13 17:52 | PC.NURSE ---
pt in lobby at this time r/t no available bed in ER at this time. Notified staff pt we will get pt in a room as soon as one is available.
[2023-03-13 17:54] LABS: Microscopic, Urine URINE MICROSCOPIC (MICROSCOPIC)
[2023-03-13 18:02] LABS: Urine Pregnancy, HCG Qual. Negative (Negative)
[2023-03-13 18:05] LABS: Appearance,Urine CLEAR (Clear); Bilirubin,Urine Negative (Negative); Blood, Urine 3+ (Negative); Color,Urine YELLOW (Yellow); Glucose,Urine (UA) Negative (Negative); Ketones,Urine Negative (Negative); Leukocyte Esterase,Urine Negative (Negative); Nitrate,Urine Negative (Negative); PH,Urine 7.5 (5.0-8.5); Protein,Urine Negative (Negative); Urobilinogen,Urine 0.2 EU/dl (0.2)
[2023-03-13 18:11] LABS: Basophils % 0.3 % (0.1-2.0); Eosinophils # 0.2 K/mm3 (0.0-0.4); Eosinophils % 1.9 % (0.1-12.0); Hematocrit 41.6 % (37.0-47.0); Hemoglobin 13.4 g/dL (12.2-16.2); Lymphocytes # 2.1 K/mm3 (0.7-4.5); Lymphocytes % 22.2 % (10-50); Mean Corpuscular HGB Conc 32.2 g/dL (31.8-35.4); Mean Corpuscular Hemoglobin 25.7 pg (27.0-31.2); Mean Corpuscular Volume 79.7 fl (81-99); Mean Platelet Volume 8.6 fl (7.4-10.4); Monocytes # 0.4 K/mm3 (0.1-1.0); Monocytes % 4.1 % (1.7-9.3); Neutrophils # 6.8 K/mm3 (1.8-7.8); Neutrophils % 71.4 % (37.0-80.0); Platelet Count 289 K/mm3 (142-424); Red Blood Count 5.22 M/mm3 (4.20-5.40); Red Cell Distribution Width 14.4 % (11.5-17.5); White Blood Count 9.5 K/mm3 (4.8-10.8)
--- NOTE | 2023-03-13 18:12 | PC.NURSE ---
labs drawn and sent.
[2023-03-13 18:16] LABS: Sodium 141 mmol/L (136-145)
[2023-03-13 18:17] LABS: Potassium 3.9 mmoL/L (3.5-5.1)
--- NOTE | 2023-03-13 18:17 | PC.NURSE ---
Rounded on pt let them know we still have no beds available at this time
[2023-03-13 18:19] LABS: Alanine Aminotransferase 22 U/L (12-78); Alkaline Phosphatase 79 U/L (38-126); Aspartate Amino Transferase 34 U/L (14-36); Bilirubin,Total 0.9 mg/dl (0.2-1.3); Blood Urea Nitrogen 9 mg/dl (7-17); Carbon Dioxide 27 mmol/L (22.0-30.0); Creatinine Clearance Estimated 135 mL/min (50-200); Estimated Glomerular Filt Rate 91 ml/min (>60); GFR (African American) 110 ML/MIN (>60)
[2023-03-13 18:20] LABS: Albumin Level 4.3 g/dl (3.5-5.0); Albumin/Globulin Ratio 1.4 (1.1-1.8); Calcium 8.4 mg/dl (8.4-10.2); Globulin 3.1 g/dL (1.3-3.2); Glucose 97 mg/dl (74-100); Total Protein,Serum 7.4 g/dl (6.3-8.2)
[2023-03-13 18:26] LABS: Anion Gap 11.9 mEq/L (5-15); Chloride 106 mmol/L (98-107)
--- NOTE | 2023-03-13 18:26 | PC.NURSE ---
pt asked for pad she was given one and now is using restroom
[2023-03-13 18:27] LABS: Squamous Epithelial Cell,Urine Occasional #/hpf (0-5)
--- NOTE | 2023-03-13 18:29 | PC.NURSE ---
pt is now back setting in lobby let charge nurse she was bleeding more now, reassured pt once bed was opened up she would be brought back to room
[2023-03-13 18:39] LABS: HCG,Quantitative < 2 mIU/ml (0-5.42)
[2023-03-13 18:49] LABS: Free T4 (Free Thyroxine) 0.94 ng/dl (0.78-2.19)
[2023-03-13 18:52] LABS: Thyroid Stimulating Hormone 0.79 uIU/mL (0.465-4.68)
[2023-03-13 20:52] VITALS: BP 120/74; PULSE 68; RESP 20; TEMP 37.1; O2SAT 99
--- NOTE | 2023-03-14 14:42 | HMH.EDGENADL ---
Discharge Plan Disposition Patient Disposition: Home, Self-Care Condition: Good Prescriptions Prescriptions: No Action amoxicillin [amoxicillin] 500 mg tablet 500 mg PO TID 10 Days Qty: 30 0RF jkykaysroffhafk-fnhmytaau-UW [Bromfed DM] 2-30-10 mg/5 mL Syrup 5 ml PO Q6H PRN (Reason: Cough) Qty: 240 0RF Referrals Follow up/Referrals: Hermila Zurita MD [Referring] - See instructions Provider,MD Tamika [Primary Care Provider] - See instructions Clinical Impressions Clinical Impression: Abnormal vaginal bleeding Discharge ED Provider: John Agarwal General Adult HPI General Chief complaint: Vaginal Bleeding Stated complaint: vagina lbleeding, prgnant + yesterday Time Seen by Provider: 03/13/23 17:43 Mode of Arrival: Ambulatory Source of Information: Patient Limitations: No Limitations Description of Symptoms (Recalled from ER Triage Doc. by RN): Pt reports + home test yesterday, began having vaginal bleeding this morning. Reports bleeding was initally scant and pinkish red in color, states as the day has progressed bleeding has gotten heavier and darker in color. Pt reports intermittent pelvic cramping. History of Present Illness HPI narrative: The patient presents today with a chief complaint of vaginal bleeding and cramping after discovering she is . She reports that the bleeding started as spotting this morning and has progressively gotten heavier throughout the day. The patient also mentions experiencing cramping, which has worsened since this morning. Her last menstrual period was in February, and she recently had a positive home test. The patient has a history of one previous miscarriage and one successful . During her second , she experienced bleeding in the beginning and received a Rhogam shot, which resolved the issue. She expresses concern due to her history of miscarriage. The patient has a past medical history of a dilation and curettage (D&C) procedure. She reports experiencing back pain but denies any pain during urination. The patient describes the current bleeding as enough to fill up a pad and similar to a period when using the bathroom, but without any visible clots. She is uncertain about the exact time of conception within the past month. Related Data Previous Rx's Medication Instructions Recorded amoxicillin 500 mg tablet 500 mg PO TID 10 days #30 tabs 01/19/23 puihangmmzknrjm-hnwhfmhxiwkjiiy-ZI 5 ml PO Q6H PRN Cough #240 mL 01/19/23 2 mg-30 mg-10 mg/5 mL oral syrup (Bromfed DM) Allergies Allergy/AdvReac Type Severity Reaction Status Date / Time No Known Allergies Allergy Verified 03/13/22 17:06 [facility] Disclaimer: The information contained in this section may have been updated after the patient was seen, as this information can be updated by other users. Social History Smoking Status: Never smoker alcohol intake: never substance use type: denies use current occupational status: student Travel in the last 8 weeks: None ROS Obtained: Yes Systems reviewed as appropriate & no additional complaints except as documented Physical Exam General General appearance: alert and in no apparent distress Head Head exam: atraumatic and normocephalic Eye Eye exam: Present normal appearance Neck Neck exam: Present normal inspection Chest Chest inspection: Present normal inspection and symmetric chest wall rise Respiratory Respiratory exam: Present normal lung sounds bilaterally; Absent respiratory distress Cardiovascular Cardiovascular exam: Present regular rate and normal rhythm Abdominal Exam Abdominal exam: Present soft Bimanual exam: Present other ( exam deferred after shared decision making) Neurological Exam Neurological exam: Present alert and oriented X3 Psychiatric Psychiatric exam: Present normal affect and normal mood Skin Skin exam: Present warm a
== END 2023-03-13 20:52 | disposition home or self-care (01) ==
PROVIDERS: Emergency Provider Emergency Medicine
DX: N93.9 Abnormal uterine and vaginal bleeding, unspecified (principal)
CPT/HCPCS: 80053; 81001; 81025; 84439; 84443; 84702; 85025; 99283

== ENCOUNTER 2023-07-10 11:33 | Emergency (ER) | payer OTHER, SELFPAY ==
[2023-07-10 12:40] VITALS: BP 137/89; PULSE 118; RESP 18; TEMP 37.2; O2SAT 98; BMI 32.0
--- NOTE | 2023-07-10 12:40 | EXP.UTC ---
Discharge Plan Disposition Patient Disposition: Home, Self-Care Condition: Good Prescriptions Prescriptions: New amoxicillin [amoxicillin] 500 mg tablet 500 mg PO TID 10 Days Qty: 30 0RF PNV,calcium 72-iron,carb-folic 29 mg iron- 1 mg tablet 1 tab PO DAILY 30 Days Qty: 30 5RF Referrals Follow up/Referrals: Provider,Referral, [Primary Care Provider] - See instructions Activity Restrictions/Add. Instructions Additional Instructions/Restrictions: Drink plenty of fluids. Take tylenol for pain or fever. Take the medications as directed. Follow up with your regular doctor. Follow up with your hall coordinator physician. GO TO THE ER FOR ANY WORSENING SYMPTOMS Clinical Impressions Clinical Impression: Otitis media, Pharyngitis, Stand Alone Forms Stand Alone Forms: Work/School Release Discharge ED Provider: Adebayo Doyle [facility] General Stated complaint: sore throat, pain in L ear Time Seen by Provider: 07/10/23 12:40 History of Present Illness Provider Complaint: She states that for the past 4 days she has had sore throat and left ear pain. Also, her period is around 2 weeks late. Related Data Previous Rx's Medication Instructions Recorded amoxicillin 500 mg tablet 500 mg PO TID 10 days #30 tabs 07/10/23 vitamins with calcium 1 tab PO DAILY 30 days #30 tabs 07/10/23 no.72-iron 29 mg-folic acid 1 mg tablet Allergies Allergy/AdvReac Type Severity Reaction Status Date / Time No Known Allergies Allergy Verified 07/10/23 12:55 [facility] Disclaimer: The information contained in this section may have been updated after the patient was seen, as this information can be updated by other users. Social History Smoking Status: Never smoker alcohol intake: never substance use type: denies use current occupational status: student Travel in the last 8 weeks: None ROS Obtained: Yes All systems reviewed & no additional complaints except as documented Constitutional Constitutional: Denies chills, Reports fever(s) and Reports poor appetite Eyes Eyes: Denies eye discharge ENT Ears, Nose, Mouth, and Throat: Denies ear discharge, Reports otalgia, Denies hearing loss, Denies sinus pain and Reports sore throat Cardiovascular Cardiovascular: Denies chest pain and Denies dyspnea Respiratory Respiratory: Denies chest congestion, Reports cough and Denies dyspnea Gastrointestinal Gastrointestingal: Denies abdominal pain, diarrhea, nausea or vomiting Musculoskeletal Musculoskeletal: Denies arthralgias Integumentary/Breasts Skin/Breast: Denies rash Physical Exam General General appearance: alert and in no apparent distress Head Head exam: atraumatic, normocephalic and normal inspection Eye Eye exam: Present normal appearance; Absent PERRL or EOMI ENT ENT exam: Present mucous membranes moist and normal external ear exam Expanded ENT Exam TM/Canal exam: Bilateral TM: erythema, bulging and effusion Nose exam: Absent sinus tenderness Nasal speculum exam: Bilateral: normal Mouth exam: Present normal external inspection and other; Absent drooling Teeth exam: Present normal inspection Throat exam: Present tonsillar erythema and tonsillomegaly Neck Neck exam: Present normal inspection, full ROM and trachea midline; Absent tenderness, meningismus or lymphadenopathy Chest Chest inspection: Present normal inspection and symmetric chest wall rise; Absent tenderness Respiratory Respiratory exam: Present normal lung sounds bilaterally; Absent respiratory distress, wheezes or stridor Cardiovascular Cardiovascular exam: Present regular rate, normal rhythm and normal heart sounds; Absent tachycardia or irregular rhythm Abdominal Exam Abdominal exam: Present soft and normal bowel sounds; Absent distention, tenderness, guarding, rebound or rigidity Extremities Exam Extremities exam: Present normal inspection and normal capillary refill; Absent tenderness, joint swelling or calf tenderness Back Exam Back exam: Present normal inspection and full ROM; Absent tenderness, CVA tenderness (R) or CVA tenderness (L) Neurological Exam Neurological exam: Present alert, oriented X3, CN II-XII intact, normal gait and reflexes normal; Absent motor sensory deficit Psychiatric Psychiatric exam: Present normal affect and normal mood Skin Skin exam: Present warm, dry, intact and normal color Lymphatic Lymphatic Findings: no adenopathy Medical Decision Making Medical Records Medical records reviewed: No I reviewed the patient's medical records. Jaswant Inquiry Pt receiving controlled substance: No Lab Data Lab results reviewed: Yes I reviewed the patient's lab results.
[2023-07-10 12:57] LABS: UTC Pregnancy Test, Urine Positive (Negative)
[2023-07-10 12:58] LABS: UTC Strep Screen (Rapid) Negative (Negative)
[2023-07-10 13:03] VITALS: BP 132/89; PULSE 118; RESP 18; TEMP 37.2; O2SAT 98
== END 2023-07-10 13:02 | disposition home or self-care (01) ==
PROVIDERS: Emergency Provider Nurse Practitioner Family
DX: H66.91 Otitis media, unspecified, right ear (principal); J02.9 Acute pharyngitis, unspecified; Z32.01 Encounter for pregnancy test, result positive
CPT/HCPCS: 81025; 87880; 99212; 99214; G0463

== ENCOUNTER 2023-08-15 17:06 | Emergency (ER) | payer SELFPAY ==
[2023-08-15 17:07] VITALS: BP 161/103; PULSE 112; RESP 17; TEMP 36.9; O2SAT 99; BMI 31.6
[2023-08-15 17:10] VITALS: BP 161/103; PULSE 110; O2SAT 98
--- NOTE | 2023-08-15 17:15 | ED_ITS ---
Discharge Plan Disposition Patient Disposition: Home, Self-Care Chief Complaint: Vaginal Bleeding Prescriptions Prescriptions: No Action PNV,calcium 72-iron,carb-folic 29 mg iron- 1 mg tablet 1 tab PO DAILY 30 Days Qty: 30 5RF diphenhydramine HCl [[employer]om SleepGels] 50 mg Capsule 50 mg PO HS PRN (Reason: Sleep) Referrals Follow up/Referrals: Provider,Referral, [Primary Care Provider] - See instructions Kadie Yeager DO [Staff Physician] - See instructions Activity Restrictions/Add. Instructions Additional Instructions/Restrictions: Follow-up with Dr. Yeager, call to schedule an appointment. Call your family doctor to establish care for this visit to the emergency department and schedule follow-up within 48 hours to ensure improvement. If you have any worsening of your condition or any other concerning signs or symptoms, return to the emergency department or your primary care doctor for further evaluation. Clinical Impressions Clinical Impression: Incomplete Discharge ED Provider: James Harvey General Adult HPI <JOCE Douglass - Last Filed: 08/15/23 17:15> General Chief complaint: Vaginal Bleeding Stated complaint: 9 wks preg- bleeding Time Seen by Provider: 08/15/23 17:09 Related Data Home Medications Medication Instructions Recorded Confirmed diphenhydramine HCl 50 mg capsule 50 mg PO HS PRN Sleep 08/15/23 08/15/23 ([employer]om SleepGels) Previous Rx's Medication Instructions Recorded vitamins with calcium 1 tab PO DAILY 30 days #30 tabs 07/10/23 no.72-iron 29 mg-folic acid 1 mg tablet Allergies Allergy/AdvReac Type Severity Reaction Status Date / Time No Known Allergies Allergy Verified 07/10/23 12:55 <James Harvey MD - Last Filed: 08/15/23 20:26> History of Present Illness HPI narrative: 23-year-old 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 Patient states that last menstrual period was May. She is by LMP 10 weeks tomorrow. Today, started having lower abdominal cramping and passing clots. Has not saturated her entire pad, but given history of miscarriages and the symptoms, came to the emergency department for further evaluation. Has needed RhoGAM in the past. PFSH <JOCE Douglass - Last Filed: 08/15/23 17:15> [facility] Disclaimer: The information contained in this section may have been updated after the patient was seen, as this information can be updated by other users. Social History Smoking Status: Never smoker alcohol intake: never substance use type: denies use current occupational status: student Travel in the last 8 weeks: None <JOCE Douglass - Last Filed: 08/15/23 17:15> ROS Obtained: Yes Systems reviewed as appropriate & no additional complaints except as documented Physical Exam <JOCE Douglass - Last Filed: 08/15/23 17:15> General General appearance: alert and in no apparent distress Head Head exam: atraumatic and normal inspection Eye Eye exam: Present normal appearance, PERRL and EOMI ENT ENT exam: Present normal exam, normal oropharynx and mucous membranes moist Neck Neck exam: Present normal inspection, full ROM and trachea midline; Absent lymphadenopathy Chest Chest inspection: Present normal inspection and symmetric chest wall rise Respiratory Respiratory exam: Present normal lung sounds bilaterally; Absent accessory muscle use Cardiovascular Cardiovascular exam: Present regular rate, normal rhythm, normal heart sounds, +S1 and +S2 Abdominal Exam Abdominal exam: Present soft and normal bowel sounds; Absent tenderness, guarding or rebound Extremities Exam Extremities exam: Present normal inspection and full ROM Neurological Exam Neurological exam: Present alert, oriented X3 and CN II-XII intact Psychiatric Psychiatric exam: Present normal affect and normal mood Skin Skin exam: Present warm, dry and normal color Lymphatic Lymphatic Findings: no adenopathy Medical Decision Making <JOCE Douglass - Last Filed: 08/15/23 17:15> Vital Signs: 08/15/23 17:07 08/15/23 17:10 Temperature 98.4 F Temperature Source Oral Pulse Rate 110 H Pulse Rate [Right] 112 H Respiratory Rate 17 Blood Pressure 161/103 H Blood Pressure [Right Arm] 161/103 H Blood Pressure Mean [Right Arm] 122 Blood Pressure Source [Right Arm] Automatic Cuff 02 Sat by Pulse Oximetry 99 98 Oxygen Delivery Method Room Air Room Air Lab Data Lab Results 08/15/23 17:22: WBC 9.1, RBC 4.89, Hgb 13.7, Hct 41.5, MCV 84.8, MCH 28.0, MCHC 33.0, RDW 14.0, Plt Count 229, MPV 9.1, Neut % (Auto) 67.4, Lymph % (Auto) 25.6, [place] % (Auto) 4.7, Eos % (Auto) 1.8, Baso % (Auto) 0.5, Neut # (Auto) 6.1, Lymph # (Auto) 2.3, [place] # (Auto) 0.4, Eos # (Auto) 0.2, Baso # (Auto) 0.1, PT 10.3, INR 0.95, Sodium 139, Potassium 3.8, Chloride 105, Carbon Dioxide 26, Anion Gap 11.8, BUN 7, Creatinine 0.70, Estimated Creat Clear 156, Estimated GFR 105, Est GFR ( Amer) 127, Glucose 104 H, Calcium 8.5, Magnesium 2.4 H, HCG, Quant 7219 H, Urine Color Yellow, Urine Appearance Clear, Urine pH 7.0, Ur Specific [place] 1.010, Urine Protein Negative, Urine Glucose (UA) Negative, Urine Ketones Negative, Urine Blood 1+, Urine Nitrate Negative, Urine Bilirubin Negative, Urine Urobilinogen 0.2, Ur Leukocyte Esterase Negative, Urine RBC None, Urine WBC None, Ur Squamous Epith Cells Occasional, Urine Bacteria None 08/15/23 17:45: Blood Type AB Negative 08/15/23 17:45: Blood Type AB Negative, Antibody Screen Negative 08/15/23 17:45: Antibody Screen Negative 08/15/23 17:22 08/15/23 17:22 Orders (Tests/Meds): ED MEDICATIONS Generic Name Dose Route Start Last Admin Trade Name Freq PRN Reason Stop Dose Admin Sodium Chloride 10 ml 08/15/23 17:55 Sodium Chloride 0.9% 10ml Flush Syringe IV 09/14/23 17:54 NEEDED PRN Maintain IV Site Discontinued Medications Generic Name Dose Route Start Last Admin Trade Name Freq PRN Reason Stop Dose Admin Rho Immune Globulin 1,500 unit 08/15/23 19:48 08/15/23 20:19 Rho(D) Immune Globulin 1,500 Unit Syringe IM 08/15/23 19:49 1,500 unit ONCE ONE Administration ORDERS Category Date Time Status Rhogam Routine BBK 08/15/23 17:45 Completed Type and Screen Stat BBK 08/15/23 17:45 Completed BMP [Basic Metabolic Panel] Stat Lab 08/15/23 17:22 Completed CBC w/Auto Diff [Complete Blood Count Auto Diff] Stat Lab 08/15/23 17:22 Completed HCG,Quantitative Stat Lab 08/15/23 17:22 Completed INR [Prothrombin Time INR] Stat Lab 08/15/23 17:22 Completed Magnesium Stat Lab 08/15/23 17:22 Completed Urinalysis and Microscopic Stat Lab 08/15/23 17:22 Completed US OB transvaginal Stat Ultrasound 08/15/23 17:33 Completed Medical Decision Narrative: In summary patient is a [age, sex] who presents to the emergency department for evaluation of [complaint]. Patient is [hemodynamically stable/unstable] upon arrival, [febrile/afebrile]. [Unremarkable physical exam, nonfocal exam versus focal remarkable exam]. Differential diagnosis includes [DDx]. Initial workup will be conducted with [hematologic labs, imaging, respiratory swab, describe workup]. Initial interventions include [crystalloid bolus, medications, p.o. challenge, etc.] initial workup reviewed by me [hematologic labs are remarkable for... Imaging remarkable for... Urinalysis remarkable for]. Upon repeat evaluation [patient had acceptable resolution of symptoms, had persistent pain for which additional interventions were conducted (describe interventions), tolerated p.o., was ambulatory, etc.]. Given this [patient is appropriate for discharge at this time and will be discharged with a prescription for... The case was discussed with hospital medicine regarding management and they will admit the patient their service for continued evaluation at this time... Etc.] Places where you can increase complexity: I informally interpreted the patient's chest x-ray or CT read and is remarkable for... Documenting what the monitoring and evaluation advisor shows with rate and rhythm Consideration of test but deferring. Ex: I considered chest x-ray on this patient however given that they have no oxygen requirement and are clear to auscultation all lung becker will be deferred. Social determinants of health: Given that patient is undomiciled increases complexity. Given that patient has polysubstance abuse compounds all aspects of care <James Harvey MD - Last Filed: 08/15/23 20:26> Medical Records Medical records reviewed: Yes I reviewed the patient's medical records. Jaswant Inquiry Pt receiving controlled substance: No Jaswant was queried for this patient: No Vital Signs: 08/15/23 17:07 08/15/23 17:10 Temperature 98.4 F Temperature Source Oral Pulse Rate 110 H Pulse Rate [Right] 112 H Respiratory Rate 17 Blood Pressure 161/103 H Blood Pressure [Right Arm] 161/103 H Blood Pressure Mean [Right Arm] 122 Blood Pressure Source [Right Arm] Automatic Cuff 02 Sat by Pulse Oximetry 99 98 Oxygen Delivery Method Room Air Room Air Lab Data Lab Results 08/15/23 17:22: WBC 9.1, RBC 4.89, Hgb 13.7, Hct 41.5, MCV 84.8, MCH 28.0, MCHC 33.0, RDW 14.0, Plt Count 229, MPV 9.1, Neut % (Auto) 67.4, Lymph % (Auto) 25.6, [place] % (Auto) 4.7, Eos % (Auto) 1.8, Baso % (Auto) 0.5, Neut # (Auto) 6.1, Lymph # (Auto) 2.3, [place] # (Auto) 0.4, Eos # (Auto) 0.2, Baso # (Auto) 0.1, PT 10.3, INR 0.95, Sodium 139, Potassium 3.8, Chloride 105, Carbon Dioxide 26, Anion Gap 11.8, BUN 7, Creatinine 0.70, Estimated Creat Clear 156, Estimated GFR 105, Est GFR ( Amer) 127, Glucose 104 H, Calcium 8.5, Magnesium 2.4 H, HCG, Quant 7219 H, Urine Color Yellow, Urine Appearance Clear, Urine pH 7.0, Ur Specific [place] 1.010, Urine Protein Negative, Urine Glucose (UA) Negative, Urine Ketones Negative, Urine Blood 1+, Urine Nitrate Negative, Urine Bilirubin Negative, Urine Urobilinogen 0.2, Ur Leukocyte Esterase Negative, Urine RBC None, Urine WBC None, Ur Squamous Epith Cells Occasional, Urine Bacteria None 08/15/23 17:45: Blood Type AB Negative 08/15/23 17:45: Blood Type AB Negative, Antibody Screen Negative 08/15/23 17:45: Antibody Screen Negative Orders (Tests/Meds): ED MEDICATIONS Generic Name Dose Route Start Last Admin Trade Name Freq PRN Reason Stop Dose Admin Sodium Chloride 10 ml 08/15/23 17:55 Sodium Chloride 0.9% 10ml Flush Syringe IV 09/14/23 17:54 NEEDED PRN Maintain IV Site Discontinued Medications Generic Name Dose Route Start Last Admin Trade Name Robi PRN Reason Stop Dose Admin Rho Immune Globulin 1,500 unit 08/15/23 19:48 08/15/23 20:19 Rho(D) Immune Globulin 1,500 Unit Syringe IM 08/15/23 19:49 1,500 unit ONCE ONE Administration ORDERS Category Date Time Status Rhogam Routine BBK 08/15/23 17:45 Completed Type and Screen Stat BBK 08/15/23 17:45 Completed BMP [Basic Metabolic Panel] Stat Lab 08/15/23 17:22 Completed CBC w/Auto Diff [Complete Blood Count Auto Diff] Stat Lab 08/15/23 17:22 Completed HCG,Quantitative Stat Lab 08/15/23 17:22 Completed INR [Prothrombin Time INR] Stat Lab 08/15/23 17:22 Completed Magnesium Stat Lab 08/15/23 17:22 Completed Urinalysis and Microscopic Stat Lab 08/15/23 17:22 Completed US OB transvaginal Stat Ultrasound 08/15/23 17:33 Completed Medical Decision Narrative: 23-year-old 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 Patient states that last menstrual period was May. She is by LMP 10 weeks tomorrow. Today, started having lower abdominal cramping and passing clots. Has not saturated her entire pad, but given history of miscarriages and the symptoms, came to the emergency department for further evaluation. Has needed RhoGAM in the past. Does not currently have OB follow- up. History obtained with patient. On arrival, patient hemodynamically stable, alert, oriented x4, appropriate, GCS 15, moving all extremities spontaneously, pupils equal and reactive to light. Full physical exam performed and significant for well-appearing woman in no acute distress. Tachycardic, but appears anxious. Abdomen soft, nontender, nondistended. Differential includes threatened , incomplete , other spontaneous miscarriage, UTI, among others. Patient was given RhoGAM IM for symptomatic management and correction of underlying abnormalities. Workup independently interpreted and significant for nonactionable CBC or coags. Chemistry normal. hCG elevated at 7200. UA without concern for UTI. Pelvic ultrasound with empty gestational sac with closed cervical os. See radiology read for full review of final results. Patient given RhoGAM because she is AB-. Given patient presentation, workup, history, this most likely represents incomplete . Patient was given follow-up with Dr. Yeager here [facility] for further evaluation. Because patient at baseline without signs or symptoms of clinical decompensation, deemed appropriate for discharge. Results were relayed to patient who voiced understanding and were agreeable to outpatient management and follow up. At the time of discharge the patient was hemodynamically stable, tolerating PO, and mobilizing appropriately. Critical Care <James Harvey MD - Last Filed: 08/15/23 20:26> Critical Care Time Critical Care Time: No
--- NOTE | 2023-08-15 17:33 | US_ITS ---
PROCEDURE INFORMATION: Exam: US , Transvaginal Exam date and time: 08/15/2023 6:44 PM Age: 23 years old Clinical indication: Lmp or gestational age (in weeks): 9w6d; Antepartum complications; ; Patient HX: Bleeding-- HX of miscarriages-- [facility] [id number]; Additional info: High risk , vaginal bleeding LABS AND CLINICAL REPORTS: Last menstrual period start date: 06/07/2023 Gestational age (Established): 9 w 6 d Estimated due date (Established): 03/13/2024 TECHNIQUE: Imaging protocol: Real-time transvaginal obstetrical ultrasound of the maternal pelvis with image documentation. Transvaginal imaging was used for better evaluation of the fetus, adnexa, and/or cervix. COMPARISON: US OB FOLLOW UP 04/05/2021 10:57 AM FINDINGS: Gestation: No pole demonstrated. BIOMETRY: Gestational age (AUA): 6 w 6 d Estimated due date (AUA): 04/03/2024 Mean sac diameter: 2.53 cm. The sac is irregular in configuration. MATERNAL: Right ovary/adnexa: Right ovary measures 3.19 cm x 1.88 cm x 1.68 cm. Right ovarian volume is 5.28 mL. Increased vascularity in association of the right ovary most compatible with corpus luteum cyst. Left ovary/adnexa: Left ovary measures 2.9 cm x 1.68 cm x 1.16 cm. Left ovarian volume is 2.96 mL. IMPRESSION: No evidence of living intrauterine gestation. Discrepancy between sac size and established gestational age. Correlate with beta HCG levels.
[2023-08-15 17:39] LABS: Appearance,Urine CLEAR (Clear); Basophils # 0.1 K/mm3 (0-0.2); Basophils % 0.5 % (0.1-2.0); Bilirubin,Urine Negative (Negative); Blood, Urine 1+ (Negative); Color,Urine YELLOW (Yellow); Eosinophils # 0.2 K/mm3 (0.0-0.4); Eosinophils % 1.8 % (0.1-12.0); Glucose,Urine (UA) Negative (Negative); Hematocrit 41.5 % (37.0-47.0); Hemoglobin 13.7 g/dL (12.2-16.2); Ketones,Urine Negative (Negative); Leukocyte Esterase,Urine Negative (Negative); Lymphocytes # 2.3 K/mm3 (0.7-4.5); Lymphocytes % 25.6 % (10-50); Mean Corpuscular Volume 84.8 fl (81-99); Mean Platelet Volume 9.1 fl (7.4-10.4); Microscopic, Urine URINE MICROSCOPIC (MICROSCOPIC); Monocytes # 0.4 K/mm3 (0.1-1.0); Monocytes % 4.7 % (1.7-9.3); Neutrophils # 6.1 K/mm3 (1.8-7.8); Neutrophils % 67.4 % (37.0-80.0); Nitrate,Urine Negative (Negative); Platelet Count 229 K/mm3 (142-424); Protein,Urine Negative (Negative); Red Blood Count 4.89 M/mm3 (4.20-5.40); Urobilinogen,Urine 0.2 EU/dl (0.2); White Blood Count 9.1 K/mm3 (4.8-10.8)
[2023-08-15 17:51] LABS: Blood Urea Nitrogen 7 mg/dl (7-17); Calcium 8.5 mg/dl (8.4-10.2); Chloride 105 mmol/L (98-107); Creatinine Clearance Estimated 156 mL/min (50-200); Estimated Glomerular Filt Rate 105 ml/min (>60); GFR (African American) 127 ML/MIN (>60); Glucose 104 mg/dl (74-100); Magnesium 2.4 mg/dl (1.6-2.3); Potassium 3.8 mmoL/L (3.5-5.1); Sodium 139 mmol/L (136-145); Squamous Epithelial Cell,Urine Occasional #/hpf (0-5)
[2023-08-15 17:52] LABS: Anion Gap 11.8 mEq/L (5-15); Carbon Dioxide 26 mmol/L (22.0-30.0); INR 0.95 (0.9-1.1); Prothrombin Time 10.3 seconds (10.1-12.5)
[2023-08-15 18:08] LABS: HCG,Quantitative 7219 mIU/ml (0-5.42)
--- NOTE | 2023-08-15 19:17 | PC.NURSE ---
pt back from u/s
--- NOTE | 2023-08-15 19:38 | PC.NURSE ---
Rounded on patient, no needs voiced at this time.
[2023-08-15] MEDS: RHO(D) IMMUNE GLOBULIN 1,500 UNIT SYRINGE 1500 UNIT IM (20:19)
--- NOTE | 2023-08-15 20:19 | PC.NURSE ---
Rhogam shot would not scan, medication verified with Troy Saenz RN, administered in pt left deltoid
--- NOTE | 2023-08-15 20:24 | PC.NURSE ---
Paper tubed back to lab
[2023-08-15 20:35] VITALS: BP 113/74; PULSE 86; RESP 16; TEMP 36.6; O2SAT 97
== END 2023-08-15 20:38 | disposition home or self-care (01) ==
PROVIDERS: Physician Assistant; Emergency Provider Emergency Medicine
DX: O03.4 Incomplete spontaneous abortion without complication (principal)
CPT/HCPCS: 76817; 80048; 81001; 83735; 84702; 85025; 85610; 86850; 96372; 99284; J2790

== ENCOUNTER 2024-02-06 12:29 | Outpatient (CLI) | payer BC, SELFPAY ==
[2024-02-06 13:42] LABS: Triiodothryronine (T3) Uptake 29 % (23.5-40.5)
[2024-02-06 13:43] LABS: Free Thyroxine Index 2.9 ug/dL (5.93-13.13); T4 (Thyroxine) 10.1 ug/dl (5.53-11.0)
[2024-02-06 13:57] LABS: Thyroid Stimulating Hormone 2.16 uIU/mL (0.465-4.68)
== END 2024-02-06 23:59 | disposition home or self-care (01) ==
LOC: LAB 12:30
PROVIDERS: Visit Provider Obstetrics & Gynecology
DX: N96 Recurrent pregnancy loss (principal)
CPT/HCPCS: 36415; 84436; 84443; 84479

== ENCOUNTER 2024-05-20 17:54 | Emergency (ER) | payer BC, SELFPAY ==
[2024-05-20 18:20] VITALS: BP 120/72; PULSE 79; RESP 20; TEMP 36.9; O2SAT 99; BMI 34.7
[2024-05-20 18:40] LABS: UTC Strep Screen (Rapid) Negative (Negative)
--- NOTE | 2024-05-20 18:56 | ED_ITS ---
Discharge Plan Disposition Patient Disposition: Home, Self-Care Condition: Good Prescriptions Prescriptions: New methylprednisolone [Medrol (Konstantin)] 4 mg tablets,dose pack See Rx Instructions .Route .COMPLEX 6 Days Qty: 21 0RF Rx Instructions: taper pack; amoxicillin-pot clavulanate 875-125 mg Tablet 1 tab PO Q12H 7 Days Qty: 14 0RF Referrals Follow up/Referrals: Provider,Referral, MD [Primary Care Provider] - See instructions Activity Restrictions/Add. Instructions Additional Instructions/Restrictions: *Monitor Temp, Over the counter Motrin or Tylenol as directed/as needed Tylenol every 4 hours and Motrin every 6 hours (as long as your family doctor has told you that you can take it) for fever or pain. and straight to ER if unable to lower temp less than 101.0 after medication given *Warm salt water gargles may help to soothe the throat *Throat Lozenges? *Warm fluids like tea with honey may help to soothe the throat? *Sleep elevated *Humidifier/Vaporizer *Take medication as prescribed Your throat swab was sent for culture. Those results are typically sent to your primary care. Be sure to follow up in 2-3 days with your family doctor/primary care physician if no improvement so they can review those result and treat if necessary. If you don?t have a primary care doctor, I recommend you get one but in the mean time, you will have to return to a walk in clinic Follow up IMMEDIATELY for new or worsening symptoms or no Noticeable improvement over the next 48-72 hours. 911 for difficulty breathing or swallowing Clinical Impressions Clinical Impression: Sinusitis Instructions Patient Instructions: DI for Sinusitis, Sinusitis Print Language Print Language: Nepali Discharge ED Provider: Snehal Jacobsen [facility] [place] HPI General Stated complaint: rueda st congestion Mode of Arrival: Ambulatory Source of Information: Patient Limitations: No Limitations Time Seen by Provider: 05/20/24 18:56 Description of Symptoms (Recalled from Triage Doc. by RN): PATIENT C/O SORE THROAT, HEADACHE AND CONGESTION X 2 DAYS HEENT Symptoms (Recalled from RN notes): Yes Resp Symptoms (Recalled from RN notes): No Skin Symptoms (Recalled from RN notes): No MS Symptoms (Recalled from RN notes): No Functional Status (Recalled from RN notes): WNL History of Present Illness Provider Complaint: Patient states that she has been having sinus pain and pressure, pressure behind her eyes and sinus headache for over a week States th at for the last couple of days she has been having sore throat also States today she wasnt feeling any better so she came in to get checked Related Data Previous Rx's ?Medication ?Instructions ?Recorded amoxicillin 875 mg-potassium 1 tab PO Q12H 7 days #14 tabs 05/20/24 clavulanate 125 mg tablet methylprednisolone 4 mg tablets in See Rx Instructions .Route 05/20/24 a dose pack (Medrol (Konstantin)) .COMPLEX 6 days #21 tabs Allergies Allergy/AdvReac Type Severity Reaction Status Date / Time No Known Allergies Allergy Verified 02/06/24 10:48 Worker's Comp Is this a Worker's Comp case?: No [facility] Disclaimer: The information contained in this section may have been updated after the patient was seen, as this information can be updated by other users. Medical History (Updated 05/20/24 @ 19:17 by Snehal Jacobsen APRN) Migraine Incomplete Surgical History [place] teeth extracted History of D&C Family History Other No significant family history Social History Smoking Status: Never smoker alcohol intake: never substance use type: denies use current occupational status: student Travel in the last 8 weeks: None ROS Obtained: Yes All systems reviewed & no additional complaints except as docu mented and Yes Systems reviewed as appropriate & no additional complaints except as documented Constitutional Constitutional: Reports system reviewed and no additional complaints, except as documented, Reports as per HPI and Reports headache(s) ENT Ears, Nose, Mouth, and Throat: Reports system reviewed and no additional complaints, except as documented, Reports as per HPI, Reports headache(s), Reports sinus pain, Reports sinus pressure and Reports sore throat Cardiovascular Cardiovascular: Reports system reviewed and no additional complaints, except as documented and Reports as per HPI Respiratory Respiratory: Reports system reviewed and no additional complaints, except as documented and Reports as per HPI Gastrointestinal Gastrointestingal: Reports system reviewed and no additional complaints, except as documented and as per HPI Genitourinary Female Genitourinary: Reports system reviewed and no additional complaints, except as documented and Reports as per HPI Musculoskeletal Musculoskeletal: Reports system reviewed and no additional complaints, except as documented and Reports as per HPI Neurologic Neurologic: Reports headache(s) Physical Exam General General appearance: alert and in no apparent distress ENT ENT exam: Present mucous membranes moist Expanded ENT Exam Nose exam: Present sinus tenderness Throat exam: Present other (PND noted) Respiratory Respiratory exam: Present normal lung sounds bilaterally; Absent respiratory distress or wheezes Cardiovascular Cardiovascular exam: Present regular rate, normal rhythm and normal heart sounds Abdominal Exam Abdominal exam: Present soft and normal bowel sounds; Absent distention or tende rness Neurological Exam Neurological exam: Present alert, oriented X3 and normal gait Medical Decision Making Medical Records Screening: Per USPSTF and CDC recommendations, given the prevalence of disease in our region, it is our hospital?s policy to screen for HIV and viral Hepatitis for all patients aged 18 and over and those with ongoing risk factors. Jaswant Inquiry Pt receiving controlled substance: No Jaswant was queried for this patient: No Vital Signs: 05/20/24 18:20 Temperature 98.5 F Temperature Source Oral Pulse Rate [Left Brachial] 79 Respiratory Rate 20 Blood Pressure [Left Arm] 120/72 Blood Pressure Mean [Left Arm] 88 Blood Pressure Source [Left Arm] Automatic Cuff Blood Pressure Position [Left Arm] Sitting 02 Sat by Pulse Oximetry 99 Oxygen Delivery Method Room Air Lab Data Lab results reviewed: Yes I reviewed the patient's lab results. Lab Results 05/20/24 18:36: Strep Scn Rapid Clinic Negative Orders (Tests/Meds): ORDERS Category Date Time Status Strep Screen Confirmation Stat Micro 05/20/24 18:36 Received
[2024-05-20 19:20] VITALS: BP 120/72; PULSE 79; RESP 20; TEMP 36.9; O2SAT 99
== END 2024-05-20 19:25 | disposition home or self-care (01) ==
PROVIDERS: Emergency Provider Nurse Practitioner
DX: J32.9 Chronic sinusitis, unspecified (principal); J02.9 Acute pharyngitis, unspecified; R51.9 Headache, unspecified; R09.81 Nasal congestion
CPT/HCPCS: 87880; 99212; G0381

== ENCOUNTER 2024-06-23 15:27 | Outpatient (CLI) | payer BC, SELFPAY ==
[2024-06-23 14:39] LABS: HDL Cholesterol 36 mg/dl (40-60)
[2024-06-23 14:41] LABS: Chol/HDL Ratio 3.8 (1-3.5); Cholesterol 136 mg/dl (140-200); Triglycerides 116 mg/dl (30-150); VLDL Cholesterol 23 mg/dL (0-40)
[2024-06-23 14:50] LABS: Direct LDL Cholesterol 91.21 mg/dL (100-129)
[2024-06-23 15:06] LABS: Hemoglobin A1C 5.2 % (4.0-6.0)
== END 2024-06-23 23:59 | disposition home or self-care (01) ==
LOC: LAB.DROPOF 15:27
PROVIDERS: PCP Internal Medicine; Visit Provider Internal Medicine
DX: E66.01 Morbid (severe) obesity due to excess calories (principal); Z82.49 Family history of ischemic heart disease and other diseases of the circulatory system; Z13.1 Encounter for screening for diabetes mellitus
CPT/HCPCS: 80061; 83036

== ENCOUNTER 2024-07-30 13:55 | Outpatient (CLI) | payer BC, SELFPAY ==
[2024-07-30 15:04] LABS: HCG,Quantitative 152 mIU/ml (0-5.42)
[2024-07-31 08:14] LABS: Progesterone 8.8 ng/mL (.)
== END 2024-07-30 23:59 | disposition home or self-care (01) ==
LOC: LAB 13:56
PROVIDERS: PCP Internal Medicine; Visit Provider Obstetrics & Gynecology
DX: Z32.01 Encounter for pregnancy test, result positive (principal)
CPT/HCPCS: 36415; 84144; 84702

== ENCOUNTER 2024-08-01 11:25 | Outpatient (CLI) | payer BC, SELFPAY ==
[2024-08-01 12:43] LABS: HCG,Quantitative 279 mIU/ml (0-5.42)
== END 2024-08-01 23:59 | disposition home or self-care (01) ==
LOC: LAB 11:28
PROVIDERS: PCP Internal Medicine; Visit Provider Obstetrics & Gynecology
DX: Z32.01 Encounter for pregnancy test, result positive (principal)
CPT/HCPCS: 36415; 84702

== ENCOUNTER 2024-08-11 12:37 | Outpatient (CLI) | payer BC, SELFPAY ==
[2024-08-11 14:06] LABS: HCG,Quantitative 1450 mIU/ml (0-5.42)
== END 2024-08-11 23:59 | disposition home or self-care (01) ==
LOC: LAB 12:37
PROVIDERS: PCP Internal Medicine; Visit Provider Obstetrics & Gynecology
DX: Z32.01 Encounter for pregnancy test, result positive (principal)
CPT/HCPCS: 36415; 84702

== ENCOUNTER 2024-08-14 11:00 | Outpatient (CLI) | payer BC, SELFPAY ==
[2024-08-14 12:43] LABS: HCG,Quantitative 1440 mIU/ml (0-5.42)
== END 2024-08-14 23:59 | disposition home or self-care (01) ==
LOC: LAB 11:01
PROVIDERS: PCP Internal Medicine; Visit Provider Obstetrics & Gynecology
DX: Z32.01 Encounter for pregnancy test, result positive (principal)
CPT/HCPCS: 36415; 84702

== ENCOUNTER 2024-08-19 11:48 | Outpatient (CLI) | payer BC, SELFPAY ==
[2024-08-19 13:03] LABS: HCG,Quantitative 2119 mIU/ml (0-5.42)
== END 2024-08-19 23:59 | disposition home or self-care (01) ==
LOC: LAB 11:48
PROVIDERS: PCP Internal Medicine; Visit Provider Obstetrics & Gynecology
DX: N96 Recurrent pregnancy loss (principal)
CPT/HCPCS: 36415; 84702

== ENCOUNTER 2024-08-21 14:11 | Outpatient (CLI) | payer BC, SELFPAY ==
--- NOTE | 2024-08-21 14:12 | US_ITS ---
PROCEDURE: US OB <= 14 WEEKS FETUS CLINICAL INDICATION: Confirmation of SAB , decreasing beta HCG quants COMPARISON: US US OB TRANSVAGINAL from 08/15/2023 FINDINGS: Transvaginal sonographic images of the pelvis were obtained. The uterus is retroverted. From her last menstrual period she is 7weeks 2days. An intrauterine gestational sac is present with a pole with a crown-rump length of 0.22cm This correlates to a gestational age of 5weeks 6days. MONROE 04/17/2025 heart tones are present with an FHR of 52bpm. Yolk sac is not seen. The right ovary is seen and appears normal. The left ovary is seen and appears normal. There is a corpus luteum in the left ovary measuring 1.9 cm. There is no fluid in the cul-de-sac. IMPRESSION: 1. Viable embryo within the uterine cavity. The heart beat appears slow at 52 BPM. 2. The embryo measures 5 weeks 6 days, MONROE should be revised to reflect this and will be 04/17/2025. 3. A yolk sac is not seen. 4. Both ovaries are seen and appear normal. There is a corpus luteum in the left ovary. 5. No fluid in the cul-de-sac. 6. Suggest repeat ultrasound in 1 week to confirm viability. Dictated by: Sharan Morales MD 08/22/2024 09:33 Sharan Morales MD in [place] 08/22/2024 09:33
== END 2024-08-21 23:59 | disposition home or self-care (01) ==
LOC: RAD 14:12
PROVIDERS: PCP Internal Medicine; Visit Provider Obstetrics & Gynecology
DX: N96 Recurrent pregnancy loss (principal); O36.80X0 Pregnancy with inconclusive fetal viability, not applicable or unspecified; Z87.59 Personal history of other complications of pregnancy, childbirth and the puerperium
CPT/HCPCS: 76801

== ENCOUNTER 2024-08-24 13:45 | Outpatient (CLI) | payer BC, SELFPAY ==
--- NOTE | 2024-08-24 13:48 | US_ITS ---
PROCEDURE: US OB <= 14 WEEKS FETUS CLINICAL INDICATION: SAB COMPARISON: US US OB TRANSVAGINAL from 08/15/2023 US US OB <= 14 WEEKS FETUS from 08/21/2024 FINDINGS: Transvaginal sonographic images of the pelvis were obtained. From her last menstrual period she is 7weeks 5days. The uterus is retroverted. An intrauterine gestation is no longer seen. The gestational sac has now disappeared. The endometrium measures 8.5 mm. The right ovary is seen and appears normal. It measures 1.4 cm x 2.0 cm x 1.4 cm There are several small peripheral follicles. The left ovary is seen and appears normal. It measures 3.2 cm x 1.3 cm x 1.2 cm There is no fluid in the cul-de-sac. IMPRESSION: 1. The previously described gestational sac is no longer present within the uterine cavity. Complete . 2. The endometrium appears irregular and measures 8.5 mm. There is a small amount of fluid within the endometrial canal. 3. The uterus is retroverted. 4. Both ovaries are seen and appear normal. 5. No fluid in the cul-de-sac. Dictated by: Sharan Morales MD 08/24/2024 15:16 Sharan Morales MD in OV 08/24/2024 15:16
== END 2024-08-24 23:59 | disposition home or self-care (01) ==
LOC: RAD 13:46
PROVIDERS: PCP Internal Medicine; Visit Provider Obstetrics & Gynecology
DX: O03.9 Complete or unspecified spontaneous abortion without complication (principal)
CPT/HCPCS: 76801